=== PATIENT | male | born 1940 | race Caucasian/White ===

== ENCOUNTER → 2016-06-21 | Outpatient (CLI) | payer MEDICARE, OTHER ==
[~2016-06-21] MED LIST: AC500T PO; ALBU8.5H2 IH; APIX2.5T PO; APIX5TAB2 PO; ASP325T PO; CALC-80 PO; CALC500T55 PO; CHOL2000 PO; CLIN-62 PO; DOCU100T7 PO; FURO20TA4 PO; HYDR-3454 PO; HYDR12.56 PO; LEVO750T6 PO; LISI10TA2 PO; LORA10TA7 PO; MAGN100T3 PO; METO-272 PO; METR500T PO; MTF500T PO; MULT-974 PO; OMEP20TA2 PO; PROP15DR OP; ROSU5TAB PO; UBID200C PO; VERA120T6 PO; VITA1CAP59 PO; ZINC50TA49 PO; ZOLP10TA5 PO; calcium PO
--- NOTE | 2016-06-21 12:33 | Diagnostic Imaging Report ---
PROCEDURE: CT lumbar spine without contrast. TECHNIQUE: Multiple contiguous axial images were obtained through the lumbar spine without the use of intravenous contrast. Sagittal and coronal reformations were then performed. INDICATION: Back pain with radiculopathy. FINDINGS: The alignment of the posterior spinal line is satisfactory. The vertebral body heights are preserved. There is suggestion of vertebral body hemangioma occupying most of L4 vertebral body without aggressive features. There is no compression fracture. There is moderate disc height loss and vacuum phenomenon at L5/S1 level. The other disc levels demonstrate no significant height loss. There is no pars defect seen at any level. The alignment at the facet joints is satisfactory. Multilevel anterior osteophyte formation is seen. There is lower lumbar spine facet arthropathy, most prominent at the lower three lumbar spine levels. This results in bilateral neural foraminal narrowing of uvxussgi-gv-bpqfgw degree on the left at L5/S1 and moderate stenosis on the right at this level. There is bilateral vupc-tq-hqvmtvzh stenosis at L4/5. There is no obvious large disc herniation or spinal canal stenosis of high grade seen at any level. This, however, is better assessed with MRI or CT myelogram. IMPRESSION: There is biuoelik-kk-xykpvs foraminal stenosis on the left side at L5/S1 level. Other findings as above. Dictated by: Dictated on workstation # [id number]
== END ==
LOC: RAD 09:28
PROVIDERS: ATTEND Nurse Practitioner Family
DX: M48.06 Spinal stenosis, lumbar region (principal)
CPT/HCPCS: 72131

== ENCOUNTER 2016-08-04 09:41 | Outpatient (CLI) | payer MEDICARE, OTHER ==
[~2016-08-04] VITALS: Ht 170.8 cm; Wt 122.9 kg
[2016-08-04 09:50] VITALS: BP 148/83
[2016-08-04] MEDS ORDERED: APIX5TAB PO (10:00)
[2016-08-04] MEDS ORDERED: LOVA10TA PO (10:00)
[2016-08-04] MEDS ORDERED: OMEP20TA7 PO (10:00)
[2016-08-04 10:44] LABS: BASOPHILS # (AUTO) 0.1 10^3/uL (0.0-0.1); BASOPHILS % (AUTO) 1 % (0-10); EOSINOPHILS # (AUTO) 0.2 10^3/uL (0.0-0.3); EOSINOPHILS % (AUTO) 3 % (0-10); LYMPHOCYTES # (AUTO) 1.9 X 10^3 (1.0-4.0); LYMPHOCYTES % (AUTO) 24 % (12-44); MEAN CORPUSCULAR HEMOGLOBIN 31 PG (25-34); MEAN CORPUSCULAR HGB CONC 33 G/DL (32-36); MEAN CORPUSCULAR VOLUME 92 FL (80-99); MONOCYTES # (AUTO) 0.9 X 10^3 (0.0-1.0); MONOCYTES % (AUTO) 11 % (0-12); NEUTROPHILS # (AUTO) 5.1 X 10^3 (1.8-7.8); NEUTROPHILS % (AUTO) 62 % (42-75); PLATELET COUNT 222 10^3/uL (130-400); RED BLOOD COUNT 5.25 10^6/uL (4.35-5.85); RED CELL DISTRIBUTION WIDTH 14.1 % (10.0-14.5); WHITE BLOOD COUNT 8.2 10^3/uL (4.3-11.0)
[2016-08-04 10:56] LABS: CREATININE SERUM 1.27 MG/DL (0.60-1.30); POTASSIUM 3.9 MMOL/L (3.6-5.0)
== END 2016-08-04 10:20 | disposition home or self-care (01) ==
LOC: PREOP 09:41
PROVIDERS: ATTEND Orthopaedic Surgery
DX: Z01.812 Encounter for preprocedural laboratory examination (principal); Z11.2 Encounter for screening for other bacterial diseases; M23.8X2 Other internal derangements of left knee
CPT/HCPCS: 36415; 80048; 85025; 87081

== ENCOUNTER 2016-08-10 08:21 | Day surgery (SDC) | payer MEDICARE, OTHER ==
--- NOTE | 2016-08-02 14:47 | HISTORY AND PHYSICAL ---
DATE OF SERVICE: Outpatient surgery on 08/10/16 for left knee arthroscopy. HISTORY OF PRESENT ILLNESS: The patient is a 75-year-old gentleman with complaints of left knee pain, catching, locking and swelling as well as tenderness along the lateral aspect of his knee. He reports swelling in this area. He underwent injection which provided temporary relief of his symptoms, but reports the pain has been progressive and is leading to functional impairment and due to failure to improve with conservative measures, the patient has elected to proceed with surgical intervention. REVIEW OF SYSTEMS: CONSTITUTIONAL: No chest pain, no shortness of breath, no dysuria. PAST MEDICAL HISTORY: Hypertension, heart disease. PAST SURGICAL HISTORY: Appendectomy, cholecystectomy, pacemaker placement, hand and foot surgery. SOCIAL HISTORY: The patient denies alcohol and tobacco use. FAMILY HISTORY: Significant for bladder cancer. MEDICATIONS: Omeprazole, lisinopril, furosemide, lovastatin, verapamil, Eliquis. ALLERGIES: PERSANTINE PHYSICAL EXAMINATION: GENERAL: The patient is well developed, well nourished no acute distress. HEENT: Normocephalic, atraumatic. Pupils were equal, round, reactive to light. Oropharynx is clear. NECK: Supple. No lymphadenopathy. LUNGS: Clear to auscultation bilaterally. HEART: Regular rate and rhythm. ABDOMEN: Soft, nontender, nondistended. EXTREMITIES: Gait: Patient ambulates with an antalgic gait on the left, 2 cm cystic mass on lateral joint line which is tender to palpation. Active range of motion: 0/3/130. No varus valgus laxity, negative for anterior and posterior drawer. He has pain laterally with Jet and he is tender along his lateral joint line. 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 PLAN: Left knee arthroscopy, chondroplasty, partial meniscectomy and cyst excision. The risks, benefits, options, ramifications and recovery were discussed at length with the patient. He understands and wishes to proceed. 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
[~2016-08-10] VITALS: Ht 170.8 cm; Wt 122.9 kg
[2016-08-10 08:16] VITALS: BP 135/92
[~2016-08-10 08:21] MED LIST changes: +APIX5TAB PO; +LOVA10TA PO; +OMEP20TA7 PO
[2016-08-10] MEDS ORDERED: ceFAZolin 1 GM/NS 50 ML IVPB IV ONE ×2 (08:30)
[2016-08-10] MEDS ORDERED: FAMOTIDINE 20MG/2ML IV (PEPCID) IV ONE (09:00)
[2016-08-10] MEDS: LACTATED RINGERS 1,000 ML IV PRN ×2 (09:09→10:51)
--- NOTE | 2016-08-10 09:21 | Progress Note-Pre Operative ---
Pre-Operative Progress Note H&P Reviewed The H&P was reviewed, patient examined and no changes noted. Date Seen by Provider: Aug 10, 2016 Time Seen by Provider: :20 Date H&P Reviewed: Aug 10, 2016 Time H&P Reviewed: 09:20 Pre-Operative Diagnosis: left knee lateral meniscus tear, chondromalacia and perimeniscal cyst CLAUDIA ANSARI MD Aug 10, 2016 09:21
--- NOTE | 2016-08-10 09:22 | Progress Note-Post Operative ---
Post-Operative Progess Note Surgeon (s)/Application Support Technician (s) Surgeon CLAUDIA ANSARI MD Application Support Technician: Bryson Brnadt Pre-Operative Diagnosis left knee lateral meniscus tear, chondromalacia and perimeniscal cyst Post-Operative Diagnosis left knee lateral and medial meniscus tear, chondromalacia of the lateral femoral condyle, medial femoral condyle, medial tibial plateau and perimeniscal cyst Procedure & Operative Findings Date of Procedure 08/10/16 Procedure Performed/Findings left knee arthroscopic partial lateral and medial meniscectomy, chondroplasty of the medial femoral condyle, lateral femoral condyle and medial tibial plateau and open cyst excision Anesthesia Type GETA Estimated Blood Loss Estimated blood loss (mL): minimal Specimens/Packing Specimens Removed none Packing: none CLAUDIA ANSARI MD Aug 10, 2016 09:22
[2016-08-10] MEDS ORDERED: BUPIVACAINE 0.25% 30 ML (SENSORCAINE) VIAL ONE (09:59)
[2016-08-10] MEDS ORDERED: morphine PF (DURAMORPH) 10 MG/10 ML AMP ONE (09:59)
[2016-08-10] MEDS ORDERED: fentaNYL INJECTION 100 MCG/2 ML AMP ONE (10:03)
[2016-08-10] MEDS ORDERED: ONDANSETRON 4 MG/2 ML (SDV) Z0FRAN ONE (10:03)
[2016-08-10] MEDS ORDERED: DEXAMETHASONE PF 10 MG/ML (DECADRON) VIAL ONE (10:03)
[2016-08-10] MEDS ORDERED: proPOfol 200 MG/20 ML (DIPRIVAN) VIAL IV ONE (10:03)
[2016-08-10] MEDS ORDERED: MIDAZOLAM 2 MG/2 ML (VERSED) VIAL ONE (10:03)
[2016-08-10] MEDS ORDERED: HYDROcodone/APAP 7.5 MG/325 MG (LORTAB, LORCET PLUS) TABLET PO PRN (10:15)
[2016-08-10] MEDS ORDERED: LACTATED RINGERS 2,000 ML IV ONE (10:37)
[2016-08-10] MEDS ORDERED: SEVOFLURANE (ULTANE) 15 ML INHAL SOLN ONE (10:37)
[2016-08-10] MEDS ORDERED: ROCURONIUM 50 MG/5 ML (ZEMURON) VIAL IV ONE (10:37)
[2016-08-10] MEDS ORDERED: GLYCOPYRROLATE 0.2 MG/ML (ROBINUL) 2 ML VIAL ONE (10:57)
[2016-08-10] MEDS ORDERED: NEOSTIGMINE (BLOXIVERZ ) 1 MG/1ML 10 ML VIAL ONE (10:57)
--- NOTE | 2016-08-10 11:41 | Anesthesia-General Post-Op ---
General Patient Condition Mental Status/LOC: Same as Preop Cardiovascular: Satisfactory Nausea/Vomiting: Absent Respiratory: Satisfactory Pain: Controlled Complications: Absent Post Op Complications Complications None Follow Up Care/Instructions Patient Instructions None needed. Anesthesia/Patient Condition Patient Condition Patient is doing well, no complaints, stable vital signs, no apparent adverse anesthesia problems. No complications reported per nursing. D/C home per [facility] Criteria: LOLITA Dick DO Aug 10, 2016 11:41
[2016-08-10 12:10] VITALS: BP 145/88
[2016-08-10 12:40] VITALS: BP 136/84
--- NOTE | 2016-08-10 13:05 | OPERATIVE REPORT ---
DATE OF SERVICE: 08/10/2016 PREOPERATIVE DIAGNOSES: 1. Left knee lateral meniscal tear. 2. 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 3. Left knee parameniscal cyst. POSTOPERATIVE DIAGNOSES: 1. Left knee lateral meniscal tear. 2. 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 3. Left knee chondromalacia of the medial tibial plateau. PROCEDURES: 1. Left knee arthroscopic partial lateral meniscectomy. 2. Left knee arthroscopic partial medial meniscectomy. 3. Left knee arthroscopic chondroplasty of the lateral femoral condyle. 4. Left knee arthroscopic chondroplasty of the medial femoral condyle. 5. Left knee arthroscopic chondroplasty of the medial tibial plateau. 6. Left knee open parameniscal cyst excision. SURGEON: Luc DOMESTIC HELPER: Bryson Brandt, who assisted throughout the procedure and closed the incision. ANESTHESIA: General endotracheal by Ziggy Rhodes CRNA. TOURNIQUET TIME: 7 minutes at 300 mmHg. ESTIMATED BLOOD LOSS: Minimal. DRAINS: None. COMPLICATIONS: None. POSTOPERATIVE PLAN: Routine arthroscopy protocol. Patient was transported to the recovery room awake and in stable condition. STATEMENT OF MEDICAL NECESSITY: The patient is a 75-year-old gentleman with complaints of left lateral knee pain, catching, locking and swelling. He was tender along his lateral joint line. There was a parameniscal cyst noted. He had pain with Jet maneuver. He tried activity modifications, rest and anti-inflammatories without relief and due to persistent symptoms and failure to improve with conservative measures, the patient elected to proceed with surgical intervention. Examination under anesthesia revealed range of motion of 0/2/130. Negative Selene, negative anterior and posterior drawer. No varus or valgus laxity and negative pivot shift. ARTHROSCOPIC FINDINGS: The patella and trochlea demonstrated no gross chondral abnormalities. Medial and lateral gutter were clear. The medial compartment demonstrated a posterior horn medial meniscal tear involving the approximately one third of the posterior horn. In addition, there were grade 2 chondral flaps over the mediofemoral condyle and medial tibial plateau in adjacent 15 x 15 areas. The ACL and PCL were intact. The lateral compartment demonstrated grade 3 chondral flaps of the central portion of the femoral condyle in a 15 x 20 area. The lateral meniscus demonstrated a horizontal cleavage tear of the posterior horn and body involving approximately one half of the posterior horn and body. PROCEDURE: After risks and benefits of procedure were discussed and questions were answered and informed consent was signed and placed on the chart, the operative site was confirmed in the preoperative holding area and initialed by the surgeon. The patient was then transferred to the operating room and after adequate levels of general endotracheal anesthetic were obtained, a timeout was called, confirming the operative site. Examination under anesthesia was performed with the above findings noted. Left lower extremity was prepped and draped in the usual sterile fashion. The knee joint was injected with 60 mL of fluid and a standard infralateral port was placed under direct visualization. An inferomedial port was created. The menisci and cruciates were carefully probed with the above findings noted. The unstable chondral flaps on the medial femoral condyle and the medial tibial plateau were debrided with a shaver back to a stable edge. The posterior horn of the medial meniscus was debrided with a biter and shaver, removing approximately one third of the posterior horn. The scope was then redirected into the lateral compartment where the unstable chondral flaps within the lateral femoral condyle were debrided with a shaver back to a stable edge and lateral meniscus tear was debrided with a biter and shaver, removing approximately one half of the posterior horn and body. This was carefully probed and no further tear or instability noted. The knee was copiously irrigated. Port sites were closed with 3-0 nylon in simple interrupted fashion. The tourniquet was then inflated and a longitudinal incision was made over the parameniscal cyst. The underlying soft tissues were carefully dissected. The deep layer was exposed and the cyst was exposed and excised in its entirety. The capsule was then closed with 3-0 Vicryl in kzzexn-nm-qgmnp interrupted fashion. The tourniquet was deflated. Pressure was used for hemostasis. The wound was copiously irrigated and closed with 4-0 nylon in vertical mattress interrupted fashion. A soft dressing was applied after injecting the knee with Duramorph and the incisions with plain Marcaine. The patient was transported to the recovery room awake and in stable condition. Job ID: [id number] DocumentID: [id number] Dictated Date: 08/10/2016 11:11:39 Manager E Learning Date: 08/10/2016 13:04:50 Dictated By: CLAUDIA ANSARI MD
[2016-08-10] MEDS ORDERED: HYDR-3816 PO (13:09)
[2016-08-10 13:10] VITALS: BP 138/86
[2016-08-10 13:35] VITALS: BP 138/86
--- NOTE | 2016-08-10 13:51 | Physical Therapy Ortho Eval ---
PT Orthopedic Evaluation Type of Surgery Knee Scope left side Prior Level of Function Current Living Status: Spouse Locomotion (Upon Admit): Independent Established Durable Medical Eq: Straight Cane, Crutches Subjective Subjective Patient in bed pre tx, agrees to PT, has pain of 5/10 in left knee. Entry Into Home: Stairs Without Railing Steps Into Home: 2 Objective Objective left knee flexion 90 degrees, extension 0 degrees Motor Control Motor Control: Motor Control WNL ROM ROM: WFL, except focal deficit Strength NT Transfer Transfers (B, C, W/C) (FIM): 5 Gait Gait Assistive Device: Crutches Weight Bearing Restriction: Weight Bearing/Tolerated Location Restriction: L LE Gait (FIM): 2 Distance: 100' Gait Level of Assist: 5 Summary/Comments Patient ambulated 100' with crutches with SBA, he went up and down 1 step using crutches with CGA Treatment Rendered Treatment: Therapeutic Exercises, Gait Train, Step Train Exercise Instruction: Quad Sets, Heel Slides, Ankle Pumps Assessment/Goals Goal Time Frame: 1 Visit Plan Treatment Plan: Discharge PT/Family Agrees to Plan: Yes Time Time In: 1300 Time Out: 1320 Total Billed Treatment Time: 20 Billed Treatment Time 1 visit EVL 20' Yes PT/OT Therapy GCodes Therapy Functional Limitation: Physical Therapy Test(s)/Tool used to determine: Level of Assistance Scale Functional Limitation-Current Charge Code: MOBCUR Modifier: CI Functional Limitation-Goal Charge Code: MOBGOAL Modifier: CI Functional Limitation-D/C Charge Codes: MOBDC Modifier: CI ENRIKE CARRERO PT Aug 10, 2016 13:51
== END 2016-08-10 13:35 | disposition home or self-care (01) ==
LOC: SDC 08:21
PROVIDERS: ATTEND Orthopaedic Surgery
DX: M23.8X2 Other internal derangements of left knee (principal); M23.001 Cystic meniscus, unspecified lateral meniscus, left knee; I10 Essential (primary) hypertension; Z79.899 Other long term (current) drug therapy; E78.5 Hyperlipidemia, unspecified; Z95.0 Presence of cardiac pacemaker; G47.33 Obstructive sleep apnea (adult) (pediatric); K21.9 Gastro-esophageal reflux disease without esophagitis; E66.01 Morbid (severe) obesity due to excess calories; Z68.41 Body mass index [BMI] 40.0-44.9, adult

== ENCOUNTER → 2017-04-10 | Outpatient (CLI) | payer MEDICARE, OTHER ==
[~2017-04-10] VITALS: Ht 170.2 cm; Wt 120.2 kg
[~2017-04-10] MED LIST changes: +CATHETER FLUSH 10 ML SYR IV PRN; +HYDR-34 PO; +REGADENOSON 0.4 MG/5 ML SYR (LEXISCAN) IV ONE
[2017-04-10 07:56] VITALS: BP 148/87
--- NOTE | 2017-04-11 00:16 | STRESS TEST ---
DATE OF SERVICE: 04/10/2017 NUCLEAR MYOVIEW REPORT REFERRING PHYSICIAN: Dr. Pate. In summary, the patient was injected with 10.15 mCi of technetium-99 Myoview and the resting images were obtained. Then, the patient received with peak stress level at 31.0 mCi of technetium-99 Myoview and the stress images were acquired. The resting and stress images were reviewed and compared in the short axis, horizontal long axis, and vertical long axis views, the test was supervised by Dr. Pate. Review of the images showed diaphragmatic attenuation with typical male pattern. Mild decreased uptake at the inferior wall. No significant ischemia was noted. SSS is 1, SDS 1, TID value 0.97. On the gated images, the left ventricle appeared to be normal size with normal contractility. Calculated ejection fraction 60%. CONCLUSION: 1. Diaphragmatic attenuation with typical male pattern with no significant ischemia or infarction on SPECT images. 2. Normal left ventricular size with normal contractility. Calculated ejection fraction 60%. Job ID: [id number] DocumentID: [id number] Dictated Date: 04/10/2017 18:25:45 Check Clerk Date: 04/11/2017 00:15:55 Dictated By: TRES ROCK MD
== END ==
LOC: CARD 06:38
PROVIDERS: ATTEND Internal Medicine
DX: I48.91 Unspecified atrial fibrillation (principal); I49.5 Sick sinus syndrome
CPT/HCPCS: 78452; 93017

== ENCOUNTER 2017-04-26 12:03 | Outpatient (CLI) | payer MEDICARE, OTHER ==
[~2017-04-26] VITALS: Ht 170.2 cm; Wt 122.9 kg
[~2017-04-26 12:03] MED LIST changes: -CATHETER FLUSH 10 ML SYR IV PRN; -REGADENOSON 0.4 MG/5 ML SYR (LEXISCAN) IV ONE
[2017-04-26 12:14] VITALS: BP 119/88
[2017-04-26] MEDS ORDERED: VERA120T6 PO (12:22)
[2017-04-26] MEDS ORDERED: ZINC50TA61 PO (12:22)
[2017-04-26] MEDS ORDERED: DOCU100T2 PO (12:22)
[2017-04-26] MEDS ORDERED: LORA10TA7 PO (12:22)
[2017-04-26] MEDS ORDERED: FURO20TA4 PO (12:22)
[2017-04-26] MEDS ORDERED: LISI10TA2 PO (12:22)
[2017-04-26] MEDS ORDERED: UBID200C36 PO (12:22)
[2017-04-26 13:06] LABS: BASOPHILS % (AUTO) 0 % (0-10); EOSINOPHILS # (AUTO) 0.4 10^3/uL (0.0-0.3); EOSINOPHILS % (AUTO) 4 % (0-10); HEMATOCRIT 41 % (40-54); HEMOGLOBIN 14.5 G/DL (13.3-17.7); LYMPHOCYTES # (AUTO) 2.6 X 10^3 (1.0-4.0); LYMPHOCYTES % (AUTO) 28 % (12-44); MEAN CORPUSCULAR HEMOGLOBIN 32 PG (25-34); MEAN CORPUSCULAR HGB CONC 35 G/DL (32-36); MEAN CORPUSCULAR VOLUME 91 FL (80-99); MEAN PLATELET VOLUME 9.5 FL (7.4-10.4); MONOCYTES % (AUTO) 10 % (0-12); NEUTROPHILS # (AUTO) 5.2 X 10^3 (1.8-7.8); NEUTROPHILS % (AUTO) 57 % (42-75); PLATELET COUNT 232 10^3/uL (130-400); RED BLOOD COUNT 4.53 10^6/uL (4.35-5.85); RED CELL DISTRIBUTION WIDTH 12.4 % (10.0-14.5); WHITE BLOOD COUNT 9.1 10^3/uL (4.3-11.0)
[2017-04-26 13:20] LABS: INR 1.1 (0.8-1.4); PROTHROMBIN TIME PATIENT 13.9 SEC (12.2-14.7)
[2017-04-26 13:23] LABS: BILIRUBIN,URINE NEGATIVE (NEGATIVE); CLARITY,URINE CLEAR; COLOR,URINE YELLOW; GLUCOSE, URINE (UA) NEGATIVE (NEGATIVE); KETONES,URINE NEGATIVE (NEGATIVE); LEUKOCYTE ESTERASE ,URINE NEGATIVE (NEGATIVE); NITRITE,URINE NEGATIVE (NEGATIVE); PH,URINE 6 (5-9); PROTEIN,URINE NEGATIVE (NEGATIVE); UROBILINOGEN,URINE NORMAL (NORMAL)
[2017-04-26 13:24] LABS: ERYTHROCYTE SEDIMENTATION RATE 12 MM/HR (0-30)
--- NOTE | 2017-04-26 13:24 | Diagnostic Imaging Report ---
INDICATION: Preoperative evaluation. COMPARISON: 09/17/2014 FINDINGS: Two views of the chest are obtained. Heart size is normal. The pulmonary vessels appear unremarkable. Pacer device in the right chest is stable. There is no pneumothorax, mediastinal widening or pleural fluid. Chronic findings of COPD with flattening of the diaphragms is unchanged. There is some scarring at the lung bases bilaterally. The lungs are otherwise clear. The osseous structures appear unremarkable. IMPRESSION: Chronic findings of COPD and scarring appears similar to the prior study. No new or acute cardiopulmonary abnormality is demonstrated. Dictated by: Dictated on workstation # [id number]
[2017-04-26 13:28] LABS: ALANINE AMINOTRANSFERASE 26 U/L (0-55); ALKALINE PHOSPHATASE 62 U/L (40-136); BILIRUBIN,TOTAL 0.4 MG/DL (0.1-1.0); BUN/CREATININE RATIO 19; CARBON DIOXIDE 20 MMOL/L (21-32); CHLORIDE 107 MMOL/L (98-107); CREATININE SERUM 0.96 MG/DL (0.60-1.30); GFR ESTIMATED > 60; GLUCOSE 85 MG/DL (70-105); SODIUM 139 MMOL/L (135-145); TOTAL PROTEIN 7.4 GM/DL (6.4-8.2)
[2017-04-26 13:31] LABS: BACTERIA,URINE NEGATIVE /HPF; SQUAMOUS EPITHELIAL CELL,UR 0-2 /HPF
== END 2017-04-26 13:15 | disposition home or self-care (01) ==
LOC: PREOP 12:03
PROVIDERS: ATTEND Orthopaedic Surgery
DX: Z01.811 Encounter for preprocedural respiratory examination (principal); Z01.812 Encounter for preprocedural laboratory examination; Z11.2 Encounter for screening for other bacterial diseases; M17.11 Unilateral primary osteoarthritis, right knee; R53.83 Other fatigue
CPT/HCPCS: 36415; 71046; 80053; 81000; 85025; 85610; 85652; 86850; 86900; 86901; 87081

== ENCOUNTER 2017-05-03 06:00 | Inpatient (IN) | payer MEDICARE, OTHER ==
--- NOTE | 2017-04-24 11:00 | HISTORY AND PHYSICAL ---
DATE OF SERVICE: DATE OF ADMISSION: 05/03/2017. HISTORY OF PRESENT ILLNESS: The patient is a 76-year-old gentleman with complaints of progressive worsening right knee pain. He has undergone treatment with injections, arthroscopies and anti-inflammatories without relief. He reports pain on the medial aspect of the knee. He reports severe activity limitations because of the knee. He reports functional impairment. He has failed to respond to conservative measures and because of this has elected to proceed with surgical intervention. Radiographs revealed a complete loss of medial joint space with moderate patellofemoral joint space narrowing. REVIEW OF SYSTEMS: No chest pain, no shortness of breath. No dysuria. PAST MEDICAL HISTORY: Hypertension and heart disease. PAST SURGICAL HISTORY: Appendectomy, cholecystectomy, pacemaker and foot. FAMILY HISTORY: Significant for bladder cancer. PRIMARY CARE PROVIDER: Dr. Pate. MEDICATIONS: Omeprazole, lisinopril, furosemide, lovastatin, verapamil, Eliquis, hydrocodone. ALLERGIES: To PERSANTINE. SOCIAL HISTORY: The patient denies alcohol use. He is a previous smoker, he quit in 1994. PHYSICAL EXAMINATION: GENERAL: Well-developed, well-nourished, no acute distress. HEENT: Normocephalic, atraumatic. Pupils are equal and reactive. Oropharynx is clear. NECK: Supple, no lymphadenopathy. LUNGS: Clear to auscultation bilaterally. HEART: Regular rate and rhythm. ABDOMEN: Soft, nontender, nondistended. EXTREMITIES: The right knee demonstrates moderate effusion. There is no erythema or warmth. He is tender along his medial joint line. He has pain with Jet's range of motion. It is 0/2/125, he is 1+ anterior drawer and posterior drawer. No varus valgus laxity. IMPRESSION: Severe right knee primary osteoarthritis. PLAN: Right total knee arthroplasty. The risks, benefits, options, complications and recovery have been discussed at length with the patient. He understands and wished to proceed. This will be an inpatient regular admission due to pain management issues, gait issues and comorbidities. Job ID: [id number] DocumentID: [id number] Dictated Date: 04/24/2017 09:46:39 Postal Clerk Date: 04/24/2017 10:59:18 Dictated By: CLAUDIA ANSARI MD
[~2017-05-03] VITALS: Ht 170.2 cm; Wt 122.9 kg
[~2017-05-03 06:00] MED LIST changes: +DOCU100T2 PO; +UBID200C36 PO; +ZINC50TA61 PO
--- OUTSIDE RECORDS SUMMARY | 2017-05-03 06:10 | XMS REPORT | Continuity of Care Document ---
Author Author [facility] Organization [facility] Address Unknown Phone Unavailable Allergies Active Description Code Type Severity Reaction Onset Reported/Identified Relationship to Patient Clinical Status Yes dipyridamole [id number] Drug Allergy Unknown PT HAD REACTION 08/15/2006 Medications There is no data. Problems Date Dx Coded Attending Type Code Diagnosis Diagnosed By 07/01/2009 Ot 211.3 BENIGN NEOPLASM LG BOWEL 07/01/2009 Ot 455.0 INT HEMORRHOID W/O COMPL 07/01/2009 Ot 455.3 EXT HEMORRHOID W/O COMPL 07/01/2009 Ot 562.10 DIVERTICULOSIS COLON (W/O MENT OF HEMORR 07/01/2009 Ot V12.72 PERSONAL HISTORY OF COLONIC POLYPS 11/20/2013 SHAYY NICE, RICK López Ot 455.5 EXT HEMRRHOID W COMP NEC 11/20/2013 RICK LUCAS MD Ot 562.10 DIVERTICULOSIS COLON (W/O MENT OF HEMORR 12/27/2013 RICK LUCAS MD Ot 401.9 HYPERTENSION NOS 12/27/2013 RICK LUCAS MD Ot 427.31 ATRIAL FIBRILLATION 12/27/2013 RICK LUCAS MD Ot 455.2 INT HEMRRHOID W COMP NEC 01/22/2014 RICK LUCAS MD Ot 455.6 01/22/2014 RICK LUCAS MD Ot V72.63 01/22/2014 RICK LUCAS MD Ot V74.8 09/22/2014 SAROJ LYONS DO Ot 038.9 SEPTICEMIA NOS 09/22/2014 SAROJ LYONS DO Ot 266.2 B-COMPLEX DEFIC NEC 09/22/2014 SAROJ LYONS DO Ot 268.9 VITAMIN D DEFICIENCY NOS 09/22/2014 SAROJ LYONS DO Ot 271.3 DISACCHARIDASE DEF/MALAB 09/22/2014 SAROJ LYONS DO Ot 272.4 HYPERLIPIDEMIA NEC/NOS 09/22/2014 SAROJ LYONS DO, Ot 276.1 HYPOSMOLALITY 09/22/2014 SAROJ LYONS DO, Ot 276.52 HYPOVOLEMIA 09/22/2014 SAROJ LYONS DO, Ot 278.00 OBESITY, NOS 09/22/2014 SAROJ LYONS DO Ot 327.23 OBSTRUCTIVE SLEEP APNEA (ADULT) (PEDIATR 09/22/2014 SAROJ LYONS DO, Ot 327.51 PERIODIC LIMB MOVEMENT DISORDER 09/22/2014 SAROJ LYONS DO, Ot 433.10 CAROTID ARTERY OCCLUSION W O CEREBRAL IN 09/22/2014 SAROJ LYONS DO, Ot 477.9 ALLERGIC RHINITIS NOS 09/22/2014 SAROJ LYONS DO Ot 486 PNEUMONIA, ORGANISM NOS 09/22/2014 SAROJ LYONS DO, Ot 496 CHR AIRWAY OBSTRUCT NEC 09/22/2014 SAROJ LYONS DO, Ot 523.01 ACUTE GINGIVITIS, NON-PLAQUE INDUCED 09/22/2014 SAROJ LYONS DO, Ot 525.10 UNSPEC ACQUIRED ABSENCE OF TEETH 09/22/2014 SAROJ LYONS DO, Ot 525.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, UNSPECIFIED 09/22/2014 SAROJ LYONS DO Ot 530.81 ESOPHAGEAL REFLUX 09/22/2014 SAROJ LYONS DO Ot 600.90 HYPERPLASIA OF PROSTATE, UNSPEC, W/O URI 09/22/2014 SAROJ LYONS DO, Ot 715.89 OSTEOARTHROSIS-MULT SITE 09/22/2014 SAROJ LYONS DO Ot 722.52 LUMB/LUMBOSAC DISC DEGEN 09/22/2014 SAROJ LYONS DO Ot 995.91 SEPSIS 09/22/2014 SAROJ LYONS DO, Ot V15.82 HISTORY OF TOBACCO USE 09/22/2014 SAROJ LYONS DO, Ot V45.01 CARDIAC PACEMAKER IN SITU 09/22/2014 SAROJ LYONS DO, Ot V45.89 POSTSURGICAL STATES NEC 09/22/2014 SAROJ LYONS DO, Ot V85.37 BODY MASS INDEX 37.0-37.9, ADULT 07/13/2016 YOSHI LYONS Ot M48.06 SPINAL STENOSIS, LUMBAR REGION 08/01/2016 YOSHI LYONS Ot M48.06 SPINAL STENOSIS, LUMBAR REGION 08/04/2016 CLAUDIA ANSARI MD Ot M23.8X2 OTHER INTERNAL DERANGEMENTS OF LEFT KNEE 08/04/2016 CLAUDIA ANSARI MD, Ot Z01.812 ENCOUNTER FOR PREPROCEDURAL LABORATORY E 08/04/2016 CLAUDIA ANSARI MD, Ot Z11.2 ENCOUNTER FOR SCREENING FOR OTHER BACTER 08/10/2016 CLAUDIA ANSARI MD Ot E66.01 MORBID (SEVERE) OBESITY DUE TO EXCESS CA 08/10/2016 CLAUDIA ANSARI MD Ot E78.5 HYPERLIPIDEMIA, UNSPECIFIED 08/10/2016 CLAUDIA ANSARI MD, Ot G47.33 OBSTRUCTIVE SLEEP APNEA (ADULT) (PEDIATR 08/10/2016 CLAUDIA ANSARI MD Ot I10 ESSENTIAL (PRIMARY) HYPERTENSION 08/10/2016 CLAUDIA ANSARI MD, Ot K21.9 GASTRO-ESOPHAGEAL REFLUX DISEASE WITHOUT 08/10/2016 CLAUDIA ANSARI MD Ot M23.001 CYSTIC MENISCUS, UNSPECIFIED LATERAL MEN 08/10/2016 CLAUDIA ANSARI MD Ot M23.8X2 OTHER INTERNAL DERANGEMENTS OF LEFT KNEE 08/10/2016 CLAUDIA ANSARI MD Ot Z68.41 BODY MASS INDEX (BMI) 40.0-44.9, ADULT 08/10/2016 CLAUDIA ANSARI MD Ot Z79.899 OTHER MOLECULAR SPECTROSCOPIST (CURRENT) DRUG THERAPY 08/10/2016 CLAUDIA ANSARI MD Ot Z87.891 PERSONAL HISTORY OF NICOTINE DEPENDENCE 08/10/2016 CLAUDIA ANSARI MD Ot Z95.0 PRESENCE OF CARDIAC PACEMAKER 08/11/2016 CLAUDIA ANSARI MD Ot E66.01 MORBID (SEVERE) OBESITY DUE TO EXCESS CA 08/11/2016 CLAUDIA ANSARI MD Ot E78.5 HYPERLIPIDEMIA, UNSPECIFIED 08/11/2016 CLAUDIA ANSARI MD Ot G47.33 OBSTRUCTIVE SLEEP APNEA (ADULT) (PEDIATR 08/11/2016 CLAUDIA ANSARI MD Ot I10 ESSENTIAL (PRIMARY) HYPERTENSION 08/11/2016 CLAUDIA ANSARI MD Ot K21.9 GASTRO-ESOPHAGEAL REFLUX DISEASE WITHOUT 08/11/2016 CLAUDIA ANSARI MD Ot M23.001 CYSTIC MENISCUS, UNSPECIFIED LATERAL MEN 08/11/2016 CLAUDIA ANSARI MD Ot M23.8X2 OTHER INTERNAL DERANGEMENTS OF LEFT KNEE 08/11/2016 CLAUDIA ANSARI MD Ot Z68.41 BODY MASS INDEX (BMI) 40.0-44.9, ADULT 08/11/2016 CLAUDIA ANSARI MD, Ot Z79.899 OTHER ALF (CURRENT) DRUG THERAPY 08/11/2016 CLAUDIA ANSARI MD Ot Z95.0 PRESENCE OF CARDIAC PACEMAKER 09/27/2016 CLAUDIA ANSARI MD Ot E66.01 MORBID (SEVERE) OBESITY DUE TO EXCESS CA 09/27/2016 CLAUDIA ANSARI MD, Ot E78.5 HYPERLIPIDEMIA, UNSPECIFIED 09/27/2016 CLAUDIA ANSARI MD, Ot G47.33 OBSTRUCTIVE SLEEP APNEA (ADULT) (PEDIATR 09/27/2016 CLAUDIA ANSARI MD, Ot I10 ESSENTIAL (PRIMARY) HYPERTENSION 09/27/2016 CLAUDIA ANSARI MD, Ot K21.9 GASTRO-ESOPHAGEAL REFLUX DISEASE WITHOUT 09/27/2016 CLAUDIA ANSARI MD, Ot M23.001 CYSTIC MENISCUS, UNSPECIFIED LATERAL MEN 09/27/2016 CLAUDIA ANSARI MD Ot M23.8X2 OTHER INTERNAL DERANGEMENTS OF LEFT KNEE 09/27/2016 CLAUDIA ANSARI MD, Ot Z68.41 BODY MASS INDEX (BMI) 40.0-44.9, ADULT 09/27/2016 CLAUDIA ANSARI MD, Ot Z79.899 OTHER MOLECULAR SPECTROSCOPIST (CURRENT) DRUG THERAPY 09/27/2016 CLAUDIA ANSARI MD, Ot Z87.891 PERSONAL HISTORY OF NICOTINE DEPENDENCE 09/27/2016 CLAUDIA ANSARI MD Ot Z95.0 PRESENCE OF CARDIAC PACEMAKER 04/04/2017 SHAYY NICE, RICK López Ot V72.84 EXAM PRE-OPERATIVE NOS 04/04/2017 RICK LUCAS MD Ot 455.6 HEMORRHOIDS NOS 04/04/2017 RICK LUCAS MD Ot V72.63 PRE-PROCEDURAL LABORATORY EXAMINATION 04/04/2017 RICK LUCAS MD Ot V74.8 SCREEN-BACTERIAL DIS NEC 04/04/2017 YOSHI LYONS Ot M48.06 SPINAL STENOSIS, LUMBAR REGION 04/13/2017 SAROJ LYONS DO Ot I48.91 UNSPECIFIED ATRIAL FIBRILLATION 04/13/2017 SAROJ LYONS DO Ot I49.5 SICK SINUS SYNDROME 04/27/2017 CLAUDIA ANSARI MD, Ot M17.11 UNILATERAL PRIMARY OSTEOARTHRITIS, RIGHT 04/27/2017 CLAUDIA ANSARI MD, Ot R53.83 OTHER FATIGUE 04/27/2017 CLAUDIA ANSARI MD, Ot Z01.811 ENCOUNTER FOR PREPROCEDURAL RESPIRATORY 04/27/2017 CLAUDIA ANSARI MD, Ot Z01.812 ENCOUNTER FOR PREPROCEDURAL LABORATORY E 04/27/2017 CLAUDIA ANSARI MD, Ot Z11.2 ENCOUNTER FOR SCREENING FOR OTHER BACTER 05/02/2017 SAROJ LYONS DO, Ot I48.91 UNSPECIFIED ATRIAL FIBRILLATION 05/02/2017 SAROJ LYONS DO, Ot I49.5 SICK SINUS SYNDROME Procedures There is no data. Results Test Result Range Complete blood count (CBC) with automated white blood cell (WBC) differential - 08/04/16 10:10 Blood leukocytes automated count (number/volume) 8.2 10*3/uL 4.3-11.0 Blood erythrocytes automated count (number/volume) 5.25 10*6/uL 4.35-5.85 Venous blood hemoglobin measurement (mass/volume) 16.0 g/dL 13.3-17.7 Blood hematocrit (volume fraction) 48 % 40-54 Automated erythrocyte mean corpuscular volume 92 [foz_us] 80-99 Automated erythrocyte mean corpuscular hemoglobin (mass per erythrocyte) 31 pg 25-34 Automated erythrocyte mean corpuscular hemoglobin concentration measurement ( mass/volume) 33 g/dL 32-36 Automated erythrocyte distribution width ratio 14.1 % 10.0-14.5 Automated blood platelet count (count/volume) 222 10*3/uL 130-400 Automated blood platelet mean volume measurement 10.0 [foz_us] 7.4-10.4 Automated blood neutrophils/100 leukocytes 62 % 42-75 Automated blood lymphocytes/100 leukocytes 24 % 12-44 Blood monocytes/100 leukocytes 11 % 0-12 Automated blood eosinophils/100 leukocytes 3 % 0-10 Automated blood basophils/100 leukocytes 1 % 0-10 Blood neutrophils automated count (number/volume) 5.1 10*3 1.8-7.8 Blood lymphocytes automated count (number/volume) 1.9 10*3 1.0-4.0 Blood monocytes automated count (number/volume) 0.9 10*3 0.0-1.0 Automated eosinophil count 0.2 10*3/uL 0.0-0.3 Automated blood basophil count (count/volume) 0.1 10*3/uL 0.0-0.1 Whole blood basic metabolic panel - 08/04/16 10:10 Serum or plasma sodium measurement (moles/volume) 137 mmol/L 135-145 Serum or plasma potassium measurement (moles/volume) 3.9 mmol/L 3.6-5.0 Serum or plasma chloride measurement (moles/volume) 105 mmol/L 98-107 Carbon dioxide 23 mmol/L 21-32 Serum or plasma anion gap determination (moles/volume) 9 mmol/L 5-14 Serum or plasma urea nitrogen measurement (mass/volume) 17 mg/dL 7-18 Serum or plasma creatinine measurement (mass/volume) 1.27 mg/dL 0.60-1.30 Serum or plasma urea nitrogen/creatinine mass ratio 13 NRG Serum or plasma creatinine measurement with calculation of estimated glomerular filtration rate 55 NRG Serum or plasma glucose measurement (mass/volume) 121 mg/dL 70-105 Serum or plasma calcium measurement (mass/volume) 9.0 mg/dL 8.5-10.1 Methicillin resistant Staphylococcus aureus (MRSA) screening culture - 10:10 Methicillin resistant Staphylococcus aureus (MRSA) screening culture NEG NRG Complete blood count (CBC) with automated white blood cell (WBC) differential - 04/26/17 12:55 Blood leukocytes automated count (number/volume) 9.1 10*3/uL 4.3-11.0 Blood erythrocytes automated count (number/volume) 4.53 10*6/uL 4.35-5.85 Venous blood hemoglobin measurement (mass/volume) 14.5 g/dL 13.3-17.7 Blood hematocrit (volume fraction) 41 % 40-54 Automated erythrocyte mean corpuscular volume 91 [foz_us] 80-99 Automated erythrocyte mean corpuscular hemoglobin (mass per erythrocyte) 32 pg 25-34 Automated erythrocyte mean corpuscular hemoglobin concentration measurement ( mass/volume) 35 g/dL 32-36 Automated erythrocyte distribution width ratio 12.4 % 10.0-14.5 Automated blood platelet count (count/volume) 232 10*3/uL 130-400 Automated blood platelet mean volume measurement 9.5 [foz_us] 7.4-10.4 Automated blood neutrophils/100 leukocytes 57 % 42-75 Automated blood lymphocytes/100 leukocytes 28 % 12-44 Blood monocytes/100 leukocytes 10 % 0-12 Automated blood eosinophils/100 leukocytes 4 % 0-10 Automated blood basophils/100 leukocytes 0 % 0-10 Blood neutrophils automated count (number/volume) 5.2 10*3 1.8-7.8 Blood lymphocytes automated count (number/volume) 2.6 10*3 1.0-4.0 Blood monocytes automated count (number/volume) 1.0 10*3 0.0-1.0 Automated eosinophil count 0.4 10*3/uL 0.0-0.3 Automated blood basophil count (count/volume) 0.0 10*3/uL 0.0-0.1 PT panel in platelet poor plasma by coagulation assay - 04/26/17 12:55 Prothrombin time (PT) in platelet poor plasma by coagulation assay 13.9 s 12.2-14.7 INR in platelet poor plasma or blood by coagulation assay 1.1 0.8-1.4 Erythrocyte sedimentation rate by westergren method - 04/26/17 12:55 Erythrocyte sedimentation rate by westergren method 12 mm 0-30 Comprehensive metabolic panel - 04/26/17 12:55 Serum or plasma sodium measurement (moles/volume) 139 mmol/L 135-145 Serum or plasma potassium measurement (moles/volume) 4.0 mmol/L 3.6-5.0 Serum or plasma chloride measurement (moles/volume) 107 mmol/L 98-107 Carbon dioxide 20 mmol/L 21-32 Serum or plasma anion gap determination (moles/volume) 12 mmol/L 5-14 Serum or plasma urea nitrogen measurement (mass/volume) 18 mg/dL 7-18 Serum or plasma creatinine measurement (mass/volume) 0.96 mg/dL 0.60-1.30 Serum or plasma urea nitrogen/creatinine mass ratio 19 NRG Serum or plasma creatinine measurement with calculation of estimated glomerular filtration rate > NRG Serum or plasma glucose measurement (mass/volume) 85 mg/dL 70-105 Serum or plasma calcium measurement (mass/volume) 9.0 mg/dL 8.5-10.1 Serum or plasma total bilirubin measurement (mass/volume) 0.4 mg/dL 0.1-1.0 Serum or plasma alkaline phosphatase measurement (enzymatic activity/volume) 62 U/L 40-136 Serum or plasma aspartate aminotransferase measurement (enzymatic activity/ volume) 22 U/L 5-34 Serum or plasma alanine aminotransferase measurement (enzymatic activity/volume ) 26 U/L 0-55 Serum or plasma protein measurement (mass/volume) 7.4 g/dL 6.4-8.2 Serum or plasma albumin measurement (mass/volume) 4.0 g/dL 3.2-4.5 Blood type T Indirect antibody screen panel - 04/26/17 12:55 ABO+Rh group ON NRG Blood group antibody screen NEGATIVE NRG Methicillin resistant Staphylococcus aureus (MRSA) screening culture - 12:55 Methicillin resistant Staphylococcus aureus (MRSA) screening culture NEG NRG Complete urinalysis with reflex to culture - 04/26/17 13:13 Urine color determination YELLOW NRG Urine clarity determination CLEAR NRG Urine pH measurement by test strip 6 5-9 Specific gravity of urine by test strip 1.015 1.016- 1.022 Urine protein assay by test strip, semi-quantitative NEGATIVE NEGATIVE Urine glucose detection by automated test strip NEGATIVE NEGATIVE Erythrocytes detection in urine sediment by light microscopy 3+ NEGATIVE Urine ketones detection by automated test strip NEGATIVE NEGATIVE Urine nitrite detection by test strip NEGATIVE NEGATIVE Urine total bilirubin detection by test strip NEGATIVE NEGATIVE Urine urobilinogen measurement by automated test strip (mass/volume) NORMAL NORMAL Urine leukocyte esterase detection by dipstick NEGATIVE NEGATIVE Automated urine sediment erythrocyte count by microscopy (number/high power field) [HPF] NRG Automated urine sediment leukocyte count by microscopy (number/high power field ) NONE NRG Bacteria detection in urine sediment by light microscopy NEGATIVE NRG Squamous epithelial cells detection in urine sediment by light microscopy 0-2 NRG Crystals detection in urine sediment by light microscopy NONE NRG Casts detection in urine sediment by light microscopy NONE NRG Mucus detection in urine sediment by light microscopy NEGATIVE NRG Complete urinalysis with reflex to culture NO NRG Encounters ACCT No. Visit Date/Time Discharge Status Pt. Type Provider Facility Loc./Unit Complaint [id number] 04/26/2017 12:03:00 04/26/2017 13:15:00 DIS Outpatient ELAN NICE, CLAUDIA [facility] PREOP OSTEOARTHRITIS [id number] 04/10/2017 06:38:00 04/10/2017 23:59:59 CLS Outpatient SAROJ LYONS DO [facility] CARD I48.1 [id number] 08/10/2016 08:21:00 08/10/2016 13:35:00 DIS Outpatient CLAUDIA ANSARI MD [facility] LEFT KNEE TORN LATERAL MENISCUS;PARAMENISCAL CYST [id number] 08/04/2016 09:41:00 08/04/2016 10:20:00 DIS Outpatient CLAUDIA ANSARI MD [facility] PREOP LEFT KNEE TORN LATERAL MENISCUS;PARAMENISCAL CYST [id number] 06/21/2016 09:28:00 06/21/2016 23:59:59 CLS Outpatient YOSHI LYONS [facility] RAD LUMBALGIA W/ RADICULOPATHY [id number] 09/17/2014 16:21:00 09/22/2014 16:01:00 DIS Inpatient SAROJ LYONS DO [facility] SURGICAL HIGH FEVER, INTRA ORAL INFECTION [id number] 12/27/2013 08:44:00 12/27/2013 13:45:00 DIS Outpatient RICK LUCAS MD [facility] HEMORRHOIDS [id number] 12/24/2013 11:17:00 12/24/2013 23:59:59 CLS Outpatient RICK LUCAS MD [facility] PREOP HEMORRHOIDS [id number] 11/20/2013 06:22:00 11/20/2013 09:10:00 DIS Outpatient RICK LUCAS MD [facility] RECTAL BLEEDING [id number] 11/13/2013 07:19:00 11/13/2013 23:59:59 CLS Outpatient RICK LUCAS MD [facility] PREOP RECTAL BLEEDING [id number] 05/03/2017 10:15:00 PEN Preadmit ELAN NICE, CLAUDIA [place] OSTEOARTHRITIS [id number] 07/01/2009 08:08:00 Document Registration
[2017-05-03] MEDS ORDERED: proPOfol 200 MG/20 ML (DIPRIVAN) VIAL IV ONE (06:43)
[2017-05-03] MEDS ORDERED: DEXAMETHASONE 10 MG/ML (DECADRON) 1 ML VIAL ONE (06:43)
[2017-05-03] MEDS ORDERED: ONDANSETRON 4 MG/2 ML (SDV) Z0FRAN ONE ×2 (06:43→08:59)
[2017-05-03] MEDS ORDERED: LIDOCAINE PF 2% 5 ML (XYLOCAINE) VIAL ONE (06:43)
[2017-05-03] MEDS ORDERED: MIDAZOLAM 2 MG/2 ML (VERSED) VIAL ONE (06:44)
[2017-05-03] MEDS ORDERED: fentaNYL INJECTION 100 MCG/2 ML AMP ONE ×2 (06:44→08:06)
[2017-05-03] MEDS ORDERED: CEFUROXIME INJECTION 1,500 MG in NS (IVPB) 50 ML IV ONE (07:00)
--- NOTE | 2017-05-03 07:27 | Progress Note-Pre Operative ---
Pre-Operative Progress Note H&P Reviewed The H&P was reviewed, patient examined and no changes noted. Date Seen by Provider: May 03, 2017 Time Seen by Provider: 07:11 Date H&P Reviewed: May 03, 2017 Time H&P Reviewed: 07:11 Pre-Operative Diagnosis: right knee primary osteoarthritis CLAUDIA ANSARI MD May 03, 2017 07:27
--- NOTE | 2017-05-03 07:28 | Progress Note-Post Operative ---
Post-Operative Progess Note Surgeon (s)/Instructor Industrial Design (s) Surgeon CLAUDIA ANSARI MD Instructor Industrial Design: Bryson Brandt Pre-Operative Diagnosis right knee primary osteoarthritis Post-Operative Diagnosis right knee primary osteoarthritis Procedure & Operative Findings Date of Procedure 05/03/17 Procedure Performed/Findings right total knee arthroplasty Anesthesia Type GETA Estimated Blood Loss Estimated blood loss (mL): minimal Specimens/Packing Specimens Removed none Packing: none CLAUDIA ANSARI MD May 03, 2017 07:28
[2017-05-03] MEDS ORDERED: ROCURONIUM 10 MG/ML 5 ML SYRINGE IV ONE (07:29)
[2017-05-03] MEDS ORDERED: SEVOFLURANE (ULTANE) 15 ML INHAL SOLN ONE ×6 (07:29→08:47)
[2017-05-03] MEDS ORDERED: INTRA-ARTICULAR IU ONE ×5 (07:30)
--- NOTE | 2017-05-03 07:30 | D/C HH Face to Face Order ---
D/C Face to Face Orders Instructions for Patient Patient Instructions/FollowUp: three weeks Physician to follow Patient: three weeks Discharge Diet for Home: Regular Diet Patient Data-Allergies,Ht & Wt Patient Allergies: Coded Allergies: dipyridamole (Unverified Allergy, Unknown, PT HAD REACTION TO PERSANTINE DURING TEST, 08/15/06) Height (Feet): 5 Height (Inches): 7.00 Weight (Pounds): 271 Weight (Ounces): 0.0 Home Health Need/Face to Face Date of Face to Face: May 03, 2017 Clinical Findings: Instability, Muscle weakness, Non or partial weight bearing , Pain with ambulation, Unsteady gait I have seen Pt [id number]: Yes Discharged To: Home Diagnosis/Conditions: right total knee arthroplsty Problems/Diagnosis/Condition: Patient is Homebound due to: Madhav fall risk due to instabilty, Muscle weakness , Pain w/ambulation Homebound Status Due to the above stated illness, injury or surgical procedure (medical condition or diagnosis) and associated clinical findings, the patient is homebound because of his/her inability to leave home except with aid of a supportive device and/or person AND leaving the home requires a considerable and taxing effort or is medically contraindicated. Pt req the following assistanc: Walker Home Health Nursing Orders Home Health Services Order: Physical Therapy-Evaluate & Treat Therapy Orders Therapy Orders: PT to assess for OT Therapy Specific Orders: Eval assistive deivces, Teach enviro modifications/ safety, Gait training, Increase strength/endurance, Restore ROM Certify Stmt I certify that this patient is under my care and that I, a nurse practitioner or a physician; a design assistant working with me, had a face to face encounter that - meets the physician face to face encounter requirements with this patient as dated. CLAUDIA ANSARI MD May 03, 2017 07:30
[2017-05-03] MEDS ORDERED: OXYC-197 PO (07:31)
[2017-05-03] MEDS: LACTATED RINGERS 1,000 ML IV PRN ×2 (07:47→08:46)
[2017-05-03 08:29] VITALS: BP 145/84
[2017-05-03] MEDS ORDERED: LACTATED RINGERS 1,000 ML IV ONE (08:42)
[2017-05-03] MEDS ORDERED: PHENYLEPHRINE 100 MCG/ML 10 ML (ANESTHESIA) SYR ONE (08:43)
[2017-05-03] MEDS ORDERED: morphine INJ 10 MG/ML 1ML (SYR OR VIAL) ONE (08:59)
[2017-05-03] MEDS ORDERED: HYDROmorphone (DILAUDID) 2 MG/ML VIAL ONE (08:59)
[2017-05-03] MEDS ORDERED: diphenhydrAMINE 50 MG/ML INJ (BENADRYL) IVP PRN (09:15)
[2017-05-03] MEDS ORDERED: ONDANSETRON 4 MG/2 ML (SDV) Z0FRAN IVP PRN ×2 (09:15→09:30)
[2017-05-03] MEDS ORDERED: morphine PCA 30 MG/30 ML VIAL IV PRN (09:15)
[2017-05-03] MEDS ORDERED: ACETAMINOPHEN 325 MG TABLET/CAPLET (TYLENOL) PO PRN (09:15)
[2017-05-03] MEDS ORDERED: HYDROmorphone (DILAUDID) 2 MG/ML VIAL IVP PRN (09:30)
[2017-05-03] MEDS ORDERED: MEPERIDINE (DEMEROL) INJ 50 MG/ML IVP PRN (09:30)
[2017-05-03] MEDS: morphine INJ 10 MG/ML 1ML (SYR OR VIAL) IVP PRN ×2 (09:37→09:42)
--- NOTE | 2017-05-03 09:53 | Diagnostic Imaging Report ---
INDICATION: Postop right knee replacement. TECHNIQUE: 2 views of the right knee. COMPARISON: None FINDINGS: There is a right total knee arthroplasty. No immediate hardware complication is seen. There is soft tissue and intra-articular air, as well as soft tissue edema and mild intra-articular fluid, consistent with recent surgery. Skin skip are noted anteriorly. Alignment appears normal. A small ossific fragment is seen posterior laterally. IMPRESSION: 1. Expected postsurgical changes following right total knee arthroplasty. Dictated by: Dictated on workstation # [id number]
[2017-05-03 10:20] VITALS: BP 145/67
[2017-05-03] MEDS: NS IV 1000 ML 1,000 ML IV SCH ×3 (10:41→23:33)
--- NOTE | 2017-05-03 11:28 | Physical Therapy Evaluation ---
PT Evaluation-General Medical Diagnosis Admission Date May 03, 2017 at 06:00 Medical Diagnosis: OA Onset Date: May 03, 2017 Therapy Diagnosis Therapy Diagnosis: generalized weakness/debility Height/Weight Height (Feet): 5 Height (Inches): 7.00 Weight (Pounds): 271 Weight (Ounces): 0.0 Precautions Precautions/Isolations: Standard Precautions Weight Bear Status Right Lower Extremity: Right Weight Bearing/Tolerated Left Lower Extremity: Left Full Weight Bearing Referral Physician: Luc Reason for Referral: Evaluation/Treatment Medical History Pertinent Medical History: COPD, HTN, OA Additional Medical History heart disease/pacemaker Current History s/p elective right TKR Reviewed History: Yes Social History Home: Single Level Current Living Status: Spouse Prior/Core FIM Prior Level of Function Functional [place] Measure 0=Not Assessed/NA 4=Minimal Assistance 1=Total Assistance 5=Supervision or Setup 2=Maximal Assistance 6=Modified [place] 3=Moderate Assistance 7=Complete [place] Bed Mobility: 7 Transfers (B,C,W/C) (FIM): 7 Gait: 7 Locomotion: 7 PT Evaluation-Current Subjective Patient and family agree to PT. Pain Numeric Pain Scale: 5-Moderate Pain Location: Right Location Body Site: Knee Pain Description: Acute Objective Patient Orientation: Normal For Age Problem Solving: Good Attachments: IV ROM/Strength ROM Lower Extremities CPM right knee 0-45 degrees with polar pack in place left LE WFL Strength Lower Extremities right LE NT left knee flexion/extension 4/5; DF/PF 4/5 Integumentary/Posture Integumentary refer to nursing notes Bowel Incontinence: No Bladder Incontinence: No Posture WNL Neuromuscular (Tone, Coordination, Reflexes) grossly intact Sensory Vision: Functional Hearing: Impaired Sensation Right Lower Extremit: Intact Sensation Left Lower Extremity: Intact Transfers Functional [place] Measure 0=Not Assessed/NA 4=Minimal Assistance 1=Total Assistance 5=Supervision or Setup 2=Maximal Assistance 6=Modified [place] 3=Moderate Assistance 7=Complete [place] Transfers (B, C, W/C) (FIM): 4 Scootin Rollin will assess sit to campus administrator p.m. Gait Mode of Locomotion: Walk Anticipated Mode of Locomotion: Walk Assessment/Needs Patient is currently too sedated to perform OOB activities, however, will be seen in p.m. 76 y.o. male, will benefit from skilled PT to address functional strength and mobility to improve current LOF and to safely return to home with spouse at maximum LOF. Rehab Potential: Good PT Fdc Goals Rear Admiral Goals PT Rear Admiral Goals Time Frame: May 10, 2017 Transfers (B,C,W/C) (FIM): 6 Gait (FIM): 6 Gait distance (FIM): 3=150 ft Distance: 200' Gait Level of Assist: 6 Gait Assistive Device: FWW Stairs (FIM): 5 # of Steps: 4 Stairs Level Of Assist: 5 PT Plan Problem List Problem List: Activity Tolerance, Functional Strength, Safety, Balance, Gait, Transfer, Bed Mobility, ROM Treatment/Plan Treatment Plan: Continue Plan of Care Treatment Plan: Bed Mobility, Education, Functional Activity Tye, Functional Strength, Gait, Safety, Therapeutic Exercise, Transfers Treatment Duration: May 10, 2017 Frequency: 11 times per week Estimated Hrs Per Day: 1 hour per day Patient and/or Family Agrees t: Yes Discharge Recommendations Therapy D/C Recommendations: Home w/ Family Support, Physical Therapy Home Care Time/GCodes Time In: 1050 Time Out: 1105 Total Billed Treatment Time: 15 Total Billed Treatment 1 visit EVModC 15 min CPM PADS KANDI MORSE PT May 03, 2017 11:28
[2017-05-03] MEDS ORDERED: PATIENT MAY USE OWN MEDS, ALL MC SCH (11:30)
--- NOTE | 2017-05-03 11:48 | Progress Note-Standard ---
Standard Progress Note Progress Notes/Assess & Plan Date Seen by Provider: May 03, 2017 Time Seen by Provider: 11:45 Progress/Assessment & Plan post op check no complaints denies paresthesia radiographs- hw well positioned. no fractures rle--2 plus dp pulse with brisk cap refill. sensation intact throughout. Intact df and pf of toes and ankle s/p RTKA doing well mobilize as able CLAUDIA ANSARI MD May 03, 2017 11:48
[2017-05-03 12:00] VITALS: BP 117/74
[2017-05-03] MEDS: oxyCODONE/APAP 5/325MG (PERCOCET 5) TABLET PO PRN ×4 (13:56→23:34)
--- NOTE | 2017-05-03 14:06 | OPERATIVE REPORT ---
DATE OF SERVICE: 05/03/2017 PREOPERATIVE DIAGNOSIS: Right knee primary osteoarthritis. POSTOPERATIVE DIAGNOSIS: Right knee primary osteoarthritis. PROCEDURE: Right total knee arthroplasty. SURGEON: Tam Calle MD. RIG WELDER: DAYO Faye, who assisted throughout the procedure and closed the incision. ANESTHESIA: General endotracheal by Quintin Cole CRNA. TOURNIQUET TIME: Approximately 65 minutes at 300 mmHg. ESTIMATED BLOOD LOSS: Minimal. DRAINS: None. COMPLICATIONS: None. POSTOPERATIVE PLAN: Routine protocol. MATERIALS: MicroPort cemented size 5 femur, cemented size 5 tibia with a 12 mm insert and a cemented size 35 patella. STATEMENT OF MEDICAL NECESSITY: The patient is a 76-year-old gentleman with longstanding progressive right knee pain. He has undergone treatment with arthroscopy, injections, activity modifications and anti-inflammatories without relief. Radiographs revealed severe medial and patellofemoral arthrosis and due to functional impairment, failure to improve with conservative measures, the patient elected to proceed with surgical intervention. DESCRIPTION OF PROCEDURE: After risks and benefits of procedure were discussed and questions were answered, informed consent was signed and placed on chart. The operative site was confirmed in the preoperative holding area initialed by surgeon. The patient was then transferred to the operating room. After adequate levels of general endotracheal anesthetic were obtained, timeout was called confirming the operative site. The right lower extremity was prepped and draped in the usual sterile fashion. With the leg elevated and the knee flexed, the tourniquet inflated to 300 mmHg. A standard anterior approach was utilized. Hemostasis was obtained with cautery and a medial parapatellar arthrotomy was performed leaving 1 cm cuff on the patella for later reattachment. A portion of the fat pad was resected and a subperiosteal release was performed on the proximal medial tibia with curved osteotome. The ACL was resected. The intramedullary guide was passed into the femoral canal and the distal cutting block was placed. The distal cut was made and the femur sized to a size 5. A 5 cutting block was placed parallel to the epicondylar axis and the cuts were made from posterior to anterior. A subperiosteal release was then carefully performed on the posterior distal femur being careful to stay on the bony surface with a curved osteotome. The intramedullary guide was then passed into the tibia. The cutting block was placed. The drop suki transected the intermalleolar axis and the cut was made. The baseplate was placed and the drop suki again transected the intermalleolar axis. This was then prepared with a drill and keel punch. The tibial and femoral trials were placed with a 12 mm insert. The trochlear cut was made. The patella was then prepared using the freehand technique by resecting 10 mm off the undersurface. The peg guide was placed and the peg holes were drilled. The 35 trial was placed. The knee was then taken through range of motion. Full extension was easily obtained, 120 degrees of flexion with gravity was easily obtained. There was no anterior/posterior or medial/lateral laxity in flexion or extension. The trials were removed. The joint was irrigated with pulse lavage. The periarticular block was placed in the posterior capsule, medial and lateral retinaculum extensor mechanism and subcutaneous tissues. The bone ends were irrigated and dried. The tibial baseplate was cemented in position. Excess of cement was removed. The superior surface was irrigated and dried and the polyethylene insert was placed. Distal femur was irrigated and dried and the femoral prosthesis was cemented into position. Excess of cement was removed. The undersurface of the toe was irrigated and dried and the patellar button was cemented into position. Excess of cement was removed. The knee was brought out into full extension until the cement had cured. Once the cement had cured, the knee was taken through range of motion. Full extension was easily obtained and 120 degrees of flexion with gravity was easily obtained. The patella tracked well. No anterior/posterior or medial/lateral laxity in flexion or extension. The joint was further irrigated with the pulse lavage. Arthrotomy was closed with #2 Tevdek in [id number] interrupted fashion. Knee was then flexed. No undue tension is noted at the repair site. Subcutaneous tissues were irrigated using a total of 6 liters of pulse lavage throughout the procedure. A 0 Vicryl was used for deep subcutaneous tissue, 2-0 Vicryl for the superficial subcutaneous tissue, skip used on the skin. A soft dressing was applied and the tourniquet was deflated. The patient was transferred to the recovery room awake and in stable condition. Job ID: [id number] DocumentID: [id number] Dictated Date: 05/03/2017 09:16:20 Information Technology Advisor Date: 05/03/2017 14:05:34 Dictated By: TAM CALLE MD
--- NOTE | 2017-05-03 14:36 | Anesthesia-General Post-Op ---
General Patient Condition Mental Status/LOC: Same as Preop Cardiovascular: Satisfactory Nausea/Vomiting: Absent Respiratory: Satisfactory Pain: Controlled Complications: Absent Post Op Complications Complications None Follow Up Care/Instructions Patient Instructions None needed. Anesthesia/Patient Condition Patient Condition Patient is doing well, no complaints, stable vital signs, no apparent adverse anesthesia problems. No complications reported per nursing. RICHARD CARDENAS CRNA May 03, 2017 14:36
--- NOTE | 2017-05-03 14:50 | Physical Therapy Daily Note ---
PT Daily Note-Current Subjective Patient in bed pre tx, agrees to PT, has no complaints of pain at rest. Appearance Patient BTB post tx with nurse call, phone, anz, [facility] care on. Patient only has one foot SCD, nurse notified so he can get another. Mental Status Patient Orientation: Person, Place, Situation Attachments: IV Transfers Functional [place] Measure 0=Not Assessed/NA 4=Minimal Assistance 1=Total Assistance 5=Supervision or Setup 2=Maximal Assistance 6=Modified [place] 3=Moderate Assistance 7=Complete IndependenceIRFPAI Quality Coding Scale 6 Independent with activity with or without an assistive device 5 Patient requires set up or clean up by helper. Patient completes activity by themselves 4 Supervision or touching assist (CGA). [place] provide cues , steadying assist 3 The helper provides less than half the effort to complete the activity 2 The helper provides more than half the effort to complete the activity 1 Dependent. The helper does all the effort to complete an activity 7 Patient refused to complete or attempt activity 9 The patient did not perform the activity before the current illness or injury 88 Not attempted due to Medical conditions or safety concerns Transfers (B, C, W/C) (FIM): 4 Scootin Rollin Supine to/from Sit: 5 Sit to/from Stand: 4 Bed to/from Chair: 4 Bed mobility SBA, transfers CGA. Cues for hand placement and positioning. Patient was slightly dizzy upon sitting and standing but it resolved quickly. Weight Bearing Right Lower Extremity: Right Weight Bearing/Tolerated Left Lower Extremity: Left Full Weight Bearing Gait Training Gait (FIM): 2 Distance: 80' Gait Level of Assist: 4 Gait Persons Needed: 1 Gait Assistive Device: FWW Slow, antalgic ambulation, slightly bent right knee. Good step through and foot clearance. Exercises Supine Ex: Ankle pumps, Quad Set, Heel Slides, Short Arc Quads, Straight leg raise Supine Reps: 10 Treatments bed mobility and transfers, ambulation, functional strengthening and ROM Assessment Current Status: Fair Progress Patient had the following AAROM of the right knee: flexion 95 degrees, extension +2 degrees PT Restuarant Crew Worker Goals [facility] Goals PT [facility] Goals Time Frame: May 10, 2017 Transfers (B,C,W/C) (FIM): 6 Gait (FIM): 6 Gait distance (FIM): 3=150 ft Distance: 200' Gait Level of Assist: 6 Gait Assistive Device: FWW Stairs (FIM): 5 # of Steps: 4 Stairs Level Of Assist: 5 PT Plan Problem List Problem List: Activity Tolerance, Functional Strength, Safety, Balance, Gait, Transfer, Bed Mobility, ROM Treatment/Plan Treatment Plan: Continue Plan of Care Treatment Plan: Bed Mobility, Education, Functional Activity Tye, Functional Strength, Gait, Safety, Therapeutic Exercise, Transfers Treatment Duration: May 10, 2017 Frequency: 11 times per week Estimated Hrs Per Day: 1 hour per day Patient and/or Family Agrees t: Yes Safety Risks/Education Patient Education: Gait Training, Transfer Techniques, Correct Positioning, Safety Issues Teaching Recipient: Patient Teaching Methods: Demonstration, Discussion Response to Teaching: Reinforcement Needed Time/GCodes Time In: 1405 Time Out: 1430 Total Billed Treatment Time: 25 Total Billed Treatment 1 visit GT 15' EX 10' ENRIKE CARRERO PT May 03, 2017 14:50
[2017-05-03 16:00] VITALS: BP 124/67
[2017-05-03] MEDS: CEFUROXIME INJECTION 750 MG in NS (IVPB) 100 ML IV SCH (17:03)
[2017-05-03] MEDS: APIXABAN 5 MG (ELIQUIS) TABLET PO SCH (18:17)
[2017-05-03] MEDS: VERAPAMIL 120 MG TABLET PO SCH (18:18)
[2017-05-03 20:00] VITALS: BP 136/75
[2017-05-03] MEDS: DOCUSATE SODIUM 100 MG (COLACE) CAP PO SCH (20:04)
[2017-05-03] MEDS: SENNA W/DOCUSATE (SENOKOT S) TABLET PO SCH (20:05)
[2017-05-03] MEDS ORDERED: NON-FORMULARY MEDICATION 1 EA EA (Docusate Sodium 100 MG) PO SCH (21:00)
[2017-05-04 00:42] VITALS: BP 132/68
[2017-05-04] MEDS: CEFUROXIME INJECTION 750 MG in NS (IVPB) 100 ML IV SCH (00:48)
[2017-05-04 03:57] VITALS: BP 128/66
[2017-05-04] MEDS: LORATADINE (CLARITIN) 10 MG TAB PO SCH (05:59)
[2017-05-04] MEDS: VERAPAMIL 120 MG TABLET PO SCH ×2 (05:59→19:04)
[2017-05-04] MEDS: lisINopril 10 MG (PRINIVIL) TABLET PO SCH (06:00)
[2017-05-04] MEDS: FUROSEMIDE 20 MG (LASIX) TAB PO SCH (06:00)
[2017-05-04] MEDS: APIXABAN 5 MG (ELIQUIS) TABLET PO SCH ×2 (06:01→19:04)
[2017-05-04] MEDS: ZINC AMINO ACID CHELATE PO SCH (06:01)
[2017-05-04] MEDS: NON-FORMULARY MEDICATION 1 EA EA (Ubidecarenone (Co Q10) 200 MG) PO SCH (06:01)
[2017-05-04] MEDS: MULTIVIT W/MINERALS TAB (THERAGRAN M) PO SCH (06:02)
[2017-05-04 06:48] LABS: HEMOGLOBIN 11.4 G/DL (13.3-17.7)
--- NOTE | 2017-05-04 07:47 | Progress Note-Standard ---
Standard Progress Note Progress Notes/Assess & Plan Date Seen by Provider: May 04, 2017 Time Seen by Provider: 07:46 Progress/Assessment & Plan post op check no complaints denies paresthesia radiographs- hw well positioned. no fractures rle--2 plus dp pulse with brisk cap refill. sensation intact throughout. Intact df and pf of toes and ankle s/p RTKA doing well mobilize as able Final Diagnosis Patient ambulating in patel Vital Signs Date Time Temp Pulse Resp B/P (MAP) Pulse Ox O2 Delivery O2 Flow Rate FiO2 05/04/17 05:57 17 05/04/17 03:57 97.6 67 17 128/66 (86) 95 Room Air 05/04/17 00:42 97.9 70 18 132/68 (89) 95 Room Air 05/03/17 20:00 98.8 69 18 136/75 (95) 95 Room Air 05/03/17 16:00 98.7 67 18 124/67 (86) 95 Room Air 05/03/17 12:00 97.6 68 20 117/74 (88) 94 Room Air 05/03/17 10:30 94 Room Air 2.00 05/03/17 10:20 97.4 73 18 145/67 (93) 95 Nasal Cannula 2.00 05/03/17 08:29 97.8 74 18 145/84 (104) 94 Room Air I & O 05/04/17 07:00 Intake Total 2750 ml Output Total 1900 ml Balance 850 ml Laboratory Tests Test 05/04/17 06:19 Range/Units Hemoglobin 11.4 L 13.3-17.7 G/DL Hematocrit 34 L 40-54 % RLE--NVI distally. no calf tenderness. Dressing intact s/p RTKA doing well continue PT/OT CLAUDIA ANSARI MD May 04, 2017 07:47
[2017-05-04 08:00] VITALS: BP 117/61
[2017-05-04] MEDS: SENNA W/DOCUSATE (SENOKOT S) TABLET PO SCH ×2 (08:14→19:11)
[2017-05-04] MEDS: oxyCODONE/APAP 5/325MG (PERCOCET 5) TABLET PO PRN ×5 (08:33→21:46)
--- NOTE | 2017-05-04 09:31 | Physical Therapy Daily Note ---
PT Daily Note-Current Subjective Patient rates right knee pain 4/10 with meds issued. Pain Numeric Pain Scale: 4 Location: Right Location Body Site: Knee Pain Description: Acute Mental Status Patient Orientation: Normal For Age Attachments: Polar Pack, IV Transfers Functional [place] Measure 0=Not Assessed/NA 4=Minimal Assistance 1=Total Assistance 5=Supervision or Setup 2=Maximal Assistance 6=Modified [place] 3=Moderate Assistance 7=Complete IndependenceIRFPAI Quality Coding Scale 6 Independent with activity with or without an assistive device 5 Patient requires set up or clean up by helper. Patient completes activity by themselves 4 Supervision or touching assist (CGA). [place] provide cues , steadying assist 3 The helper provides less than half the effort to complete the activity 2 The helper provides more than half the effort to complete the activity 1 Dependent. The helper does all the effort to complete an activity 7 Patient refused to complete or attempt activity 9 The patient did not perform the activity before the current illness or injury 88 Not attempted due to Medical conditions or safety concerns Transfers (B, C, W/C) (FIM): 6 Scootin Rollin Supine to/from Sit: 6 Sit to/from Stand: 6 Weight Bearing Right Lower Extremity: Right Weight Bearing/Tolerated Left Lower Extremity: Left Full Weight Bearing Gait Training Gait (FIM): 6 Distance (FIM): 3=150 ft Distance: 300' Gait Level of Assist: 6 Gait Assistive Device: FWW steady, reciprocal pattern Exercises Supine Ex: Ankle pumps, Quad Set, Heel Slides, Straight leg raise Supine Reps: 25 Seated Therapy Exercises: Ankle pumps, Long arc quads Seated Reps: 25 Assessment Patient progressing with treatment plan. PT will increase activity as tolerated. CPM 0-60 degrees with polar pack in place. PT Coupon Redemption Clerk Goals Coupon Redemption Clerk Goals PT [facility] Goals Time Frame: May 10, 2017 Transfers (B,C,W/C) (FIM): 6 Gait (FIM): 6 Gait distance (FIM): 3=150 ft Distance: 200' Gait Level of Assist: 6 Gait Assistive Device: FWW Stairs (FIM): 5 # of Steps: 4 Stairs Level Of Assist: 5 PT Plan Treatment/Plan Treatment Plan: Continue Plan of Care Treatment Plan: Bed Mobility, Education, Functional Activity Tye, Functional Strength, Gait, Safety, Therapeutic Exercise, Transfers Treatment Duration: May 10, 2017 Frequency: 11 times per week Estimated Hrs Per Day: 1 hour per day Patient and/or Family Agrees t: Yes Time/GCodes Time In: 820 Time Out: 844 Total Billed Treatment Time: 24 Total Billed Treatment 1 visit GT 14 min EX 10 min KANDI MORSE PT May 04, 2017 09:31
[2017-05-04 12:00] VITALS: BP 106/53
[2017-05-04] MEDS: NS IV 1000 ML 1,000 ML IV SCH (12:24)
--- NOTE | 2017-05-04 15:37 | Physical Therapy Daily Note ---
PT Daily Note-Current Subjective Patient agrees to PT. No c/o. Pain Numeric Pain Scale: 5-Moderate Pain Location: Right Location Body Site: Knee Pain Description: Acute Mental Status Patient Orientation: Normal For Age Attachments: IV Transfers Functional [place] Measure 0=Not Assessed/NA 4=Minimal Assistance 1=Total Assistance 5=Supervision or Setup 2=Maximal Assistance 6=Modified [place] 3=Moderate Assistance 7=Complete IndependenceIRFPAI Quality Coding Scale 6 Independent with activity with or without an assistive device 5 Patient requires set up or clean up by helper. Patient completes activity by themselves 4 Supervision or touching assist (CGA). [place] provide cues , steadying assist 3 The helper provides less than half the effort to complete the activity 2 The helper provides more than half the effort to complete the activity 1 Dependent. The helper does all the effort to complete an activity 7 Patient refused to complete or attempt activity 9 The patient did not perform the activity before the current illness or injury 88 Not attempted due to Medical conditions or safety concerns Transfers (B, C, W/C) (FIM): 5 Scootin Sit to/from Stand: 5 Weight Bearing Right Lower Extremity: Right Weight Bearing/Tolerated Left Lower Extremity: Left Full Weight Bearing Gait Training Gait (FIM): 6 Distance (FIM): 3=150 ft Distance: 350' Gait Level of Assist: 6 Gait Assistive Device: FWW reciprocal pattern Exercises Supine Ex: Ankle pumps, Quad Set, Heel Slides Supine Reps: 25 Seated Therapy Exercises: Ankle pumps, Long arc quads Seated Reps: 25 Assessment Patient tolerated treatment well and is up in recliner with needs met. Patient is progressing with treatment plan. PT Forest Fire Warden Goals Forest Fire Warden Goals PT Forest Fire Warden Goals Time Frame: May 10, 2017 Transfers (B,C,W/C) (FIM): 6 Gait (FIM): 6 Gait distance (FIM): 3=150 ft Distance: 200' Gait Level of Assist: 6 Gait Assistive Device: FWW Stairs (FIM): 5 # of Steps: 4 Stairs Level Of Assist: 5 PT Plan Treatment/Plan Treatment Plan: Continue Plan of Care Treatment Plan: Bed Mobility, Education, Functional Activity Tye, Functional Strength, Gait, Safety, Therapeutic Exercise, Transfers Treatment Duration: May 10, 2017 Frequency: 11 times per week Estimated Hrs Per Day: 1 hour per day Patient and/or Family Agrees t: Yes Time/GCodes Time In: 1315 Time Out: 1340 Total Billed Treatment Time: 25 Total Billed Treatment 1 visit EX 15 min GT 10 min KANDI MORSE PT May 04, 2017 15:37
[2017-05-04 16:32] VITALS: BP 118/60
--- NOTE | 2017-05-04 16:59 | Occupational Therapy Eval ---
OT Evaluation-General/PLF Medical Diagnosis Admission Date May 03, 2017 at 06:00 Medical Diagnosis: OA Onset Date: May 03, 2017 Therapy Diagnosis Therapy Diagnosis: decr self care, decr funct mobilitty Height/Weight Height (Feet): 5 Height (Inches): 7.00 Weight (Pounds): 271 Weight (Ounces): 0.0 Precautions Precautions/Isolations: Standard Precautions Safety Interventions: None Weight Bear Status Weight Bearing Restriction: Weight Bearing/Tolerated Referral Physician: Luc Referral Reason: Evaluation/Treatment Medical History Pertinent Medical History: COPD, HTN, OA Additional Medical History Heart disease. pacemaker. Foot surgery Current History Elective total knee R Reviewed History: Yes Social History Home: Single Level Current Living Status: Spouse ADL-Prior Level of Function ADL PLOF Comments Pt reported that he was able to manage his basic ADLs at home. He wore slip on shoes and would have difficulty tying them due to his body habitus. DME/Equipment: Grab Bars, Shower, Tall Toilet Occupation: retired OT Current Status Subjective Pt seen inroom, up in bed, agreeable to OT. Pain rated 9/10 and he used METAL MILLING MACHINE OPERATOR pump for meds. pt encouraged to ask for oral meds to give them time to work Appearance Alert, cooperative Mental Status/Objective Attachments: Central Line, IV, SCD's Current Glasses/Contacts: Yes Hand Dominance: Right Upper Extremity ROM Grossly WFL bilat Upper Extremity Strength Grossly WFL bilat ADL-Treatment ADL-Current Pt has been walking over 300 feet with mod I, FWW with PT. pt inquired about taking a shower tomorrow and reported that he hasn't been to toilet for BM. Functional [place] Measure 0=Not Assessed/NA 4=Minimal Assistance 1=Total Assistance 5=Supervision or Setup 2=Maximal Assistance 6=Modified [place] 3=Moderate Assistance 7=Complete IndependenceIRFPAI Quality Coding Scale 6 Independent with activity with or without an assistive device 5 Patient requires set up or clean up by helper. Patient completes activity by themselves 4 Supervision or touching assist (CGA). [place] provide cues , steadying assist 3 The helper provides less than half the effort to complete the activity 2 The helper provides more than half the effort to complete the activity 1 Dependent. The helper does all the effort to complete an activity 7 Patient refused to complete or attempt activity 9 The patient did not perform the activity before the current illness or injury 88 Not attempted due to Medical conditions or safety concerns Education OT Patient Education: Modified ADL techniques, Purpose of tx/functional activities, Rehab process Teaching Recipient: Patient, Family Teaching Methods: Discussion Response to Teaching: Verbalize Understanding OT Nail Making Machine Setter Goals Nail Making Machine Setter Goals Time Frame: May 06, 2017 Bathing(FIM): 5 Upper Body Dressing(FIM): 5 Lower Body Dressing(FIM): 5 Toileting(FIM): 6 Toilet/Commode Transfer(FIM): 6 Additional Goals: 1-Demonstrate ADL Tasks, 2-Verbalize Understanding, 3- ImproveStrength/Tye 1=Demonstrate adherence to instructed precautions during ADL tasks. 2=Patient will verbalize/demonstrate understanding of assistive devices/ modifications for ADL. 3=Patient will improve strength/tolerance for activity to enable patient to perform ADL's. OT Education/Plan Problem List/Assessment Assessment: Dependent Transfers, Impaired Self-Care Skills Pt would benefit from skilled ot to increase his independence in basic self care and to decrease caregiver burden Discharge Recommendations Plan/Recommendations: Continue POC Target Placement Home on Monday Treatment Plan/Plan of Care Treatment,Training & Education: Yes Patient would benefit from OT for education, treatment and training to promote independence in ADL's, mobility, safety and/or upper extremity function for ADL' s. Plan of Care: ADL Retraining Treatment Duration: May 06, 2017 Frequency: 5 times per week Estimated Hrs Per Day: .25 hour per day (.25 to .5) Rehab Potential: Good Time/GCodes Start Time: 15:05 Stop Time: 15:20 Total Time Billed (hr/min): 15 Billed Treatment Time visit, 15 minutes evaluation low intensity JUAN JOEL OT May 04, 2017 16:59
[2017-05-04] MEDS: DOCUSATE SODIUM 100 MG (COLACE) CAP PO SCH (19:07)
[2017-05-04 20:21] VITALS: BP 116/60
[2017-05-05] VITALS: BP 123/65
[2017-05-05] MEDS: oxyCODONE/APAP 5/325MG (PERCOCET 5) TABLET PO PRN ×8 (00:07→20:50)
[2017-05-05] MEDS: NS IV 1000 ML 1,000 ML IV SCH (01:11)
[2017-05-05 04:00] VITALS: BP 117/64
--- NOTE | 2017-05-05 07:06 | Progress Note-Standard ---
Standard Progress Note Progress Notes/Assess & Plan Date Seen by Provider: May 05, 2017 Time Seen by Provider: 07:05 Progress/Assessment & Plan post op check no complaints denies paresthesia radiographs- hw well positioned. no fractures rle--2 plus dp pulse with brisk cap refill. sensation intact throughout. Intact df and pf of toes and ankle s/p RTKA doing well mobilize as able Final Diagnosis No complaints Vital Signs Date Time Temp Pulse Resp B/P (MAP) Pulse Ox O2 Delivery O2 Flow Rate FiO2 05/05/17 04:00 99.7 84 18 117/64 (81) 95 NIV CPAP 05/05/17 00:00 99.3 77 17 123/65 (84) 94 NIV CPAP 05/04/17 20:21 100.6 83 18 116/60 (78) 93 Room Air 05/04/17 20:20 Room Air 05/04/17 16:32 100.3 76 18 118/60 (79) 93 Room Air 05/04/17 12:00 98.9 76 20 106/53 (70) 94 Room Air 05/04/17 08:00 99.5 88 20 117/61 (79) 93 Room Air 05/04/17 08:00 96 Room Air I & O 05/05/17 07:00 Intake Total 1720 ml Output Total 1500 ml Balance 220 ml Laboratory Tests Test 05/05/17 06:05 Range/Units Hemoglobin 11.0 L 13.3-17.7 G/DL Hematocrit 33 L 40-54 % RLE--able to perform SLR. neg Shant';s. incision clean and dry s/p RTKA doing well continue PT/OT likely DC tomorrow CLAUDIA ANSARI MD May 05, 2017 07:06
[2017-05-05] MEDS: FUROSEMIDE 20 MG (LASIX) TAB PO SCH (07:07)
[2017-05-05] MEDS: VERAPAMIL 120 MG TABLET PO SCH ×2 (07:08→18:37)
[2017-05-05] MEDS: APIXABAN 5 MG (ELIQUIS) TABLET PO SCH ×2 (07:08→18:37)
[2017-05-05] MEDS: lisINopril 10 MG (PRINIVIL) TABLET PO SCH (07:09)
[2017-05-05] MEDS: LORATADINE (CLARITIN) 10 MG TAB PO SCH (07:10)
[2017-05-05] MEDS ORDERED: morphine INJ 4 MG/ML 1 ML (VIAL/SYRINGE) IVP PRN (07:15)
[2017-05-05 08:00] VITALS: BP 122/68
[2017-05-05] MEDS: SENNA W/DOCUSATE (SENOKOT S) TABLET PO SCH ×2 (08:06→19:45)
[2017-05-05] MEDS: MULTIVIT W/MINERALS TAB (THERAGRAN M) PO SCH (08:06)
--- NOTE | 2017-05-05 09:40 | Physical Therapy Daily Note ---
PT Daily Note-Current Subjective Patient has increase c/o right knee pain with meds issued. Pain Numeric Pain Scale: 10-Worst Possible Pain Location: Right Location Body Site: Knee Pain Description: Acute Mental Status Patient Orientation: Normal For Age Transfers Functional [place] Measure 0=Not Assessed/NA 4=Minimal Assistance 1=Total Assistance 5=Supervision or Setup 2=Maximal Assistance 6=Modified [place] 3=Moderate Assistance 7=Complete IndependenceIRFPAI Quality Coding Scale 6 Independent with activity with or without an assistive device 5 Patient requires set up or clean up by helper. Patient completes activity by themselves 4 Supervision or touching assist (CGA). [place] provide cues , steadying assist 3 The helper provides less than half the effort to complete the activity 2 The helper provides more than half the effort to complete the activity 1 Dependent. The helper does all the effort to complete an activity 7 Patient refused to complete or attempt activity 9 The patient did not perform the activity before the current illness or injury 88 Not attempted due to Medical conditions or safety concerns Transfers (B, C, W/C) (FIM): 6 Scootin Rollin Supine to/from Sit: 6 Sit to/from Stand: 6 Weight Bearing Right Lower Extremity: Right Weight Bearing/Tolerated Left Lower Extremity: Left Full Weight Bearing Gait Training Gait (FIM): 6 Distance (FIM): 3=150 ft Distance: 300' x 2 Gait Level of Assist: 6 Gait Assistive Device: FWW antalgic, reciprocal pattern Stair Training Stair Training: Handrails/: No handrail Stairs (FIM): 2 #of Steps: 3 Stairs: Pattern: Step to Level of Assist: 4 utilized crutches due to no handrail at home. Exercises Supine Ex: Ankle pumps, Quad Set, Heel Slides Supine Reps: 15 Seated Therapy Exercises: Ankle pumps, Long arc quads Seated Reps: 15 Assessment Patient progressing with treatment plan and will dismiss to home tomorrow. PT Senior Care Goals Barrel Endshaker Adjuster Goals PT Senior Care Goals Time Frame: May 10, 2017 Transfers (B,C,W/C) (FIM): 6 Gait (FIM): 6 Gait distance (FIM): 3=150 ft Distance: 200' Gait Level of Assist: 6 Gait Assistive Device: FWW Stairs (FIM): 5 # of Steps: 4 Stairs Level Of Assist: 5 PT Plan Treatment/Plan Treatment Plan: Continue Plan of Care Treatment Plan: Bed Mobility, Education, Functional Activity Tye, Functional Strength, Gait, Safety, Therapeutic Exercise, Transfers Treatment Duration: May 10, 2017 Frequency: 11 times per week Estimated Hrs Per Day: 1 hour per day Patient and/or Family Agrees t: Yes Time/GCodes Time In: 855 Time Out: 920 Total Billed Treatment Time: 25 Total Billed Treatment 1 visit FA 14 min GT 11 min KANDI MORSE PT May 05, 2017 09:40
--- NOTE | 2017-05-05 11:54 | Occupational Ther Daily Note ---
OT Current Status-Daily Note Subjective Pt alert, lying in bed. Pt agreed to therapy. C/o with movement, did not rate. Mental Status/Objective Patient Orientation: Person, Place, Time, Situation Functional Teller Measure 0=Not Assessed/NA 4=Minimal Assistance 1=Total Assistance 5=Supervision or Setup 2=Maximal Assistance 6=Modified T[place] 3=Moderate Assistance 7=Complete Teller ADL-Treatment Min A with R LE to go from sitting up in bed to sitting EOB. With bed elevated pt was able to go from sit to stand. Pt ambulated to bathroom and transferred to shower with min A using FWW, shower bench and grabbar. Pt was able to reach all areas except R foot then assist in standing to cleanse buttocks, 1x LOB. Pt then transferred from shower with min A and transferred to toilet with min A using grabbars and FWW. Pt is able to don/doff shirt by self. Pt doffs L sock by self, assist with R sock. Assist to don B shoes. Pt was able to complete hygiene by self and assist to hike pants over hips due to increased pain in knee with pressure. Pt ambulated to sink and completed grooming with SBA. Pt ambulated to bed and min A to lift R LE into bed. After therapy, pt lying in bed with call light/phone in reach. All needs met in room. Grooming (FIM): 5 Bathing (FIM): 4 Bathing Location: L Arm, R Arm, L Upper Leg, R Upper Leg, L Lower Leg ( including foot), Chest, Abdomen, Buttocks, Perineal Area Upper Body (FIM): 5 Lower Body Dressing (FIM): 2 (Pt donned L LE into shorts, assist for R LE.) Toileting (FIM): 3 Toilet/Commode Transfer (FIM): 4 Shower Transfer(FIM): 4 OT Short Term Goals Short Term Goals 1=Demonstrate adherence to instructed precautions during ADL tasks. 2=Patient will verbalize/demonstrate understanding of assistive devices/ modifications for ADL. 3=Patient will improve strength/tolerance for activity to enable patient to perform ADL's. OT Mcfp Goals Guard Sergeant Goals Time Frame: May 06, 2017 Bathing(FIM): 5 Upper Body Dressing(FIM): 5 Lower Body Dressing(FIM): 5 Toileting(FIM): 6 Toilet/Commode Transfer(FIM): 6 Additional Goals: 1-Demonstrate ADL Tasks, 2-Verbalize Understanding, 3- ImproveStrength/Tye 1=Demonstrate adherence to instructed precautions during ADL tasks. 2=Patient will verbalize/demonstrate understanding of assistive devices/ modifications for ADL. 3=Patient will improve strength/tolerance for activity to enable patient to perform ADL's. OT Education/Plan Problem List/Assessment Pt would benefit from skilled ot to increase his independence in basic self care and to decrease caregiver burden Discharge Recommendations Plan/Recommendations: Continue POC Treatment Plan/Plan of Care Patient would benefit from OT for education, treatment and training to promote independence in ADL's, mobility, safety and/or upper extremity function for ADL' s. Plan of Care: ADL Retraining Treatment Duration: May 06, 2017 Frequency: 5 times per week Estimated Hrs Per Day: .25 hour per day (.25 to .5) Rehab Potential: Good Time/GCodes Start Time: 11:15 Stop Time: 12:04 Total Time Billed (hr/min): 49 Billed Treatment Time 1 visit-ADL 3 (49 min) CANDE LUKE May 05, 2017 11:54
[2017-05-05 12:00] VITALS: BP 118/59
--- NOTE | 2017-05-05 13:53 | Physical Therapy Daily Note ---
PT Daily Note-Current Subjective Patient has 10/10 pain with meds issued. Pain Numeric Pain Scale: 10-Worst Possible Pain Location: Right Location Body Site: Knee Pain Description: Acute Mental Status Patient Orientation: Normal For Age Transfers Functional [place] Measure 0=Not Assessed/NA 4=Minimal Assistance 1=Total Assistance 5=Supervision or Setup 2=Maximal Assistance 6=Modified [place] 3=Moderate Assistance 7=Complete IndependenceIRFPAI Quality Coding Scale 6 Independent with activity with or without an assistive device 5 Patient requires set up or clean up by helper. Patient completes activity by themselves 4 Supervision or touching assist (CGA). [place] provide cues , steadying assist 3 The helper provides less than half the effort to complete the activity 2 The helper provides more than half the effort to complete the activity 1 Dependent. The helper does all the effort to complete an activity 7 Patient refused to complete or attempt activity 9 The patient did not perform the activity before the current illness or injury 88 Not attempted due to Medical conditions or safety concerns Transfers (B, C, W/C) (FIM): 5 Scootin Rollin Supine to/from Sit: 5 Sit to/from Stand: 5 Weight Bearing Right Lower Extremity: Right Weight Bearing/Tolerated Left Lower Extremity: Left Full Weight Bearing Gait Training Gait (FIM): 5 Distance (FIM): 3=150 ft Distance: 150' Gait Level of Assist: 5 Gait Assistive Device: FWW very slow, antalgic Exercises Supine Ex: Ankle pumps, Quad Set, Heel Slides Supine Reps: 15 Seated Therapy Exercises: Long arc quads Seated Reps: 15 Treatments CPM 0-76 degrees Assessment Patient tolerated treatment well and is on CPM with polar pack in place. Plan dismissal to home with family tomorrow after PT. PT Detention Goals Devulcanizer Charger Goals PT Detention Goals Time Frame: May 10, 2017 Transfers (B,C,W/C) (FIM): 6 Gait (FIM): 6 Gait distance (FIM): 3=150 ft Distance: 200' Gait Level of Assist: 6 Gait Assistive Device: FWW Stairs (FIM): 5 # of Steps: 4 Stairs Level Of Assist: 5 PT Plan Treatment/Plan Treatment Plan: Continue Plan of Care Treatment Plan: Bed Mobility, Education, Functional Activity Tye, Functional Strength, Gait, Safety, Therapeutic Exercise, Transfers Treatment Duration: May 10, 2017 Frequency: 11 times per week Estimated Hrs Per Day: 1 hour per day Patient and/or Family Agrees t: Yes Time/GCodes Time In: 1300 Time Out: 1330 Total Billed Treatment Time: 30 Total Billed Treatment 1 visit EX 15 min GT 15 min KANDI MORSE PT May 05, 2017 13:53
[2017-05-05 16:25] VITALS: BP 132/77
[2017-05-05 19:40] VITALS: BP 120/71
[2017-05-05] MEDS: DOCUSATE SODIUM 100 MG (COLACE) CAP PO SCH (19:45)
[2017-05-06] MEDS: oxyCODONE/APAP 5/325MG (PERCOCET 5) TABLET PO PRN ×5 (00:16→13:15)
[2017-05-06 00:40] VITALS: BP 103/63
[2017-05-06 05:59] LABS: HEMOGLOBIN 10.7 G/DL (13.3-17.7)
[2017-05-06] MEDS: MULTIVIT W/MINERALS TAB (THERAGRAN M) PO SCH (06:13)
[2017-05-06] MEDS: lisINopril 10 MG (PRINIVIL) TABLET PO SCH (06:16)
[2017-05-06] MEDS: FUROSEMIDE 20 MG (LASIX) TAB PO SCH (06:16)
[2017-05-06] MEDS: LORATADINE (CLARITIN) 10 MG TAB PO SCH (06:17)
[2017-05-06] MEDS: VERAPAMIL 120 MG TABLET PO SCH (06:17)
[2017-05-06] MEDS: APIXABAN 5 MG (ELIQUIS) TABLET PO SCH (06:17)
[2017-05-06] MEDS: NON-FORMULARY MEDICATION 1 EA EA (Ubidecarenone (Co Q10) 200 MG) PO SCH (06:18)
[2017-05-06] MEDS: ZINC AMINO ACID CHELATE PO SCH (06:18)
[2017-05-06 08:00] VITALS: BP 114/56
[2017-05-06] MEDS: SENNA W/DOCUSATE (SENOKOT S) TABLET PO SCH (08:50)
--- NOTE | 2017-05-06 09:53 | Progress Note-Standard ---
Standard Progress Note Progress Notes/Assess & Plan Date Seen by Provider: May 06, 2017 Time Seen by Provider: 09:52 Progress/Assessment & Plan post op check no complaints denies paresthesia radiographs- hw well positioned. no fractures rle--2 plus dp pulse with brisk cap refill. sensation intact throughout. Intact df and pf of toes and ankle s/p RTKA doing well mobilize as able Final Diagnosis No complaints Vital Signs Date Time Temp Pulse Resp B/P (MAP) Pulse Ox O2 Delivery O2 Flow Rate FiO2 05/06/17 00:40 98.6 85 20 103/63 (76) 93 Room Air 05/05/17 22:20 98.4 05/05/17 20:45 98.4 05/05/17 19:46 100.9 05/05/17 19:40 100.9 91 20 120/71 (87) 93 Room Air 05/05/17 16:25 99.8 101 20 132/77 (95) 92 Room Air 05/05/17 12:00 98.1 82 18 118/59 (78) 96 Room Air I & O 05/06/17 07:00 Intake Total 1630 ml Output Total 200 ml Balance 1430 ml Laboratory Tests Test 05/06/17 05:26 Range/Units Hemoglobin 10.7 L 13.3-17.7 G/DL Hematocrit 32 L 40-54 % RLE--pos slr. flex to 90. no calf tenderness. Neg Shant's incision clean and dry s/p RTKA doing well DC home CLAUDIA ANSARI MD May 06, 2017 09:53
--- NOTE | 2017-05-06 10:58 | Physical Therapy Daily Note ---
PT Daily Note-Current Subjective PT agreeable. Pt rates pain 2/10 in (R) knee. Pt verbalizes understanding of HEP and ascending steps. Pt reports he will go home today with home health care to follow. Transfers Functional [place] Measure 0=Not Assessed/NA 4=Minimal Assistance 1=Total Assistance 5=Supervision or Setup 2=Maximal Assistance 6=Modified [place] 3=Moderate Assistance 7=Complete IndependenceIRFPAI Quality Coding Scale 6 Independent with activity with or without an assistive device 5 Patient requires set up or clean up by helper. Patient completes activity by themselves 4 Supervision or touching assist (CGA). [place] provide cues , steadying assist 3 The helper provides less than half the effort to complete the activity 2 The helper provides more than half the effort to complete the activity 1 Dependent. The helper does all the effort to complete an activity 7 Patient refused to complete or attempt activity 9 The patient did not perform the activity before the current illness or injury 88 Not attempted due to Medical conditions or safety concerns Weight Bearing Right Lower Extremity: Right Weight Bearing/Tolerated Left Lower Extremity: Left Full Weight Bearing Exercises Supine Ex: LE Protocol Supine Reps: 15 Treatments CPM 0-76degrees. Assessment Current Status: Good Progress Pt able to perform all exercises with min A as needed. ROM approximately 5 - 76 degrees (R) knee. Pt resting in CPM with call light and cryotherapy on knee , compression pumps on LE. All needs met. PT Restaurant Bartender Goals Restaurant Bartender Goals PT Alf Goals Time Frame: May 10, 2017 Transfers (B,C,W/C) (FIM): 6 Gait (FIM): 6 Gait distance (FIM): 3=150 ft Distance: 200' Gait Level of Assist: 6 Gait Assistive Device: FWW Stairs (FIM): 5 # of Steps: 4 Stairs Level Of Assist: 5 PT Plan Treatment/Plan Treatment Plan: Continue Plan of Care Treatment Plan: Bed Mobility, Education, Functional Activity Tye, Functional Strength, Gait, Safety, Therapeutic Exercise, Transfers Treatment Duration: May 10, 2017 Frequency: 11 times per week Estimated Hrs Per Day: 1 hour per day Patient and/or Family Agrees t: Yes Time/GCodes Time In: 815 Time Out: 840 Total Billed Treatment Time: 25 Total Billed Treatment 1, ther ex 25 min ALESIA NEW CPTA May 06, 2017 10:58
--- NOTE | 2017-05-06 14:02 | DISCHARGE SUMMARY ---
DATE OF SERVICE: 05/06/2017 DIAGNOSES: 1. Right knee primary osteoarthritis. 2. Hypertension. 3. Coronary artery disease. PROCEDURES: Right total knee arthroplasty. SUMMARY: This patient is a 76-year-old gentleman, who underwent a right total knee arthroplasty on the day of admission. Postoperatively, he did very well. At the time of discharge, he attained independent status with physical therapy. His wound was clean and dry. He can perform active straight leg raise. He had no calf tenderness. Negative Homans sign. He had active flexion to 90 degrees. He was tolerating his diet well and tolerating pain with oral pain medication. CONDITION AT DISCHARGE: Good. DISCHARGE DIET: Regular. FOLLOWUP: In three weeks. Home physical therapy has been arranged. DISCHARGE MEDICATIONS: Home medications and Percocet as needed for pain. Job ID: [id number] DocumentID: [id number] Dictated Date: 05/06/2017 09:51:12 Arbor Press Operator Date: 05/06/2017 14:02:26 Dictated By: CLAUDIA ANSARI MD
[2017-05-06 14:45] VITALS: BP 114/56
== END 2017-05-06 15:00 | disposition home health service (06) | DRG 470 ==
LOC: 4TH 06:00 → SURG 06:01 → 4TH 09:23
PROVIDERS: ADMIT Orthopaedic Surgery; ATTEND Orthopaedic Surgery
PROC: 0SRC0J9 Replacement of Right Knee Joint with Synthetic Substitute, Cemented, Open Approach (ICD-10-PCS; principal; 2017-05-03 07:32)
DX: M17.11 Unilateral primary osteoarthritis, right knee (principal); I11.9 Hypertensive heart disease without heart failure; E66.01 Morbid (severe) obesity due to excess calories; Z68.41 Body mass index [BMI] 40.0-44.9, adult; I25.10 Atherosclerotic heart disease of native coronary artery without angina pectoris; J44.9 Chronic obstructive pulmonary disease, unspecified; G47.33 Obstructive sleep apnea (adult) (pediatric); K21.9 Gastro-esophageal reflux disease without esophagitis; Z95.0 Presence of cardiac pacemaker; Z87.891 Personal history of nicotine dependence
CPT/HCPCS: 36415; 73560; 85014; 85018; 86850; 86900; 86901; 94664

== ENCOUNTER 2017-06-29 11:02 | Outpatient (RCR) | payer MEDICARE, OTHER ==
[~2017-06-29 11:02] MED LIST changes: +OXYC-197 PO
== END 2017-06-29 12:08 | disposition home or self-care (01) ==
PROVIDERS: ATTEND Orthopaedic Surgery
DX: Z47.1 Aftercare following joint replacement surgery (principal); Z96.651 Presence of right artificial knee joint

== ENCOUNTER → 2017-10-03 | Outpatient (CLI) | payer MEDICARE, OTHER ==
--- NOTE | 2017-10-03 15:26 | Diagnostic Imaging Report ---
PROCEDURE: CT lumbar spine without contrast. TECHNIQUE: Multiple contiguous axial images were obtained through the lumbar spine without the use of intravenous contrast. Sagittal and coronal reformations were then performed. INDICATION: Possible mass on the left side at the lumbosacral region. Patient also complains of right lower extremity radiculopathy. FINDINGS: No discrete mass is identified. Curvature and alignment is normal. Vertebral body heights are maintained. No acute compression fracture is seen. Hemangioma involving the L4 vertebral body is again noted and similar to CT from 06/21/2016. There is multilevel degenerative disc disease with variable disc space narrowing and marginal spurring. There is multilevel facet arthropathy present. The bony spinal canal appears to be patent at all levels. There is ligamentous thickening with broad-based disc/osteophyte complex at the L4-5 level. There appears to be some mild central canal and neural foraminal narrowing present at this level. L5-S1 demonstrates a widely patent central canal. There is significant left and moderate right neural foraminal stenosis due to endplate osteophytes, similar to prior CT. No new abnormality is seen. IMPRESSION: Spondylosis and facet arthropathy, similar in appearance to the prior CT from 06/21/2016. No acute fracture seen. No discrete mass is detected. Dictated by: Dictated on workstation # [id number]
== END ==
LOC: RAD 14:04
PROVIDERS: ATTEND Orthopaedic Surgery
DX: M47.26 Other spondylosis with radiculopathy, lumbar region (principal); M46.86 Other specified inflammatory spondylopathies, lumbar region
CPT/HCPCS: 72131

== ENCOUNTER 2017-11-22 12:43 | Outpatient (RCR) | payer MEDICARE, OTHER ==
[~2017-11-22 12:43] MED LIST changes: -OXYC-197 PO; +OXYC1TAB87 PO
== END 2017-11-26 | disposition home or self-care (01) ==
PROVIDERS: ATTEND Student in an Organized Health Care Education/Training Program
DX: M47.816 Spondylosis without myelopathy or radiculopathy, lumbar region (principal); M51.36 Other intervertebral disc degeneration, lumbar region; M53.3 Sacrococcygeal disorders, not elsewhere classified

== ENCOUNTER 2018-01-03 13:24 | Outpatient (RCR) | payer MEDICARE, OTHER | END 2018-01-03 14:45 | disposition home or self-care (01) | PROVIDERS: ATTEND Student in an Organized Health Care Education/Training Program | DX: M47.816 Spondylosis without myelopathy or radiculopathy, lumbar region (principal); M51.36 Other intervertebral disc degeneration, lumbar region; M53.3 Sacrococcygeal disorders, not elsewhere classified ==

== ENCOUNTER → 2018-12-31 | Outpatient (CLI) | payer MEDICARE, OTHER ==
--- NOTE | 2018-12-31 14:17 | Diagnostic Imaging Report ---
PROCEDURE: US Bilateral lower extremity arterial. TECHNIQUE: Multiple real-time grayscale images are obtained through both lower extremity arterial systems with color Doppler imaging and color Doppler spectral analysis. INDICATION: Claudication. FINDINGS: There are essentially normal triphasic waveforms throughout the right lower extremity. There are no focally elevated velocities appreciated to suggest stenosis. There are no abnormal fluid collections or masses. There is monophasic flow in the left popliteal artery. Remainder of the left lower extremity demonstrates triphasic waveforms. There are no focally elevated velocities appreciated to suggest stenosis. There are no abnormal fluid collections or masses. IMPRESSION: No significant arteriosclerotic stenosis in either lower extremity. Dictated by: Dictated on workstation # [id number]
== END ==
LOC: RAD 12:49
PROVIDERS: ATTEND Nurse Practitioner Family
DX: I25.812 Atherosclerosis of bypass graft of coronary artery of transplanted heart without angina pectoris (principal); I73.9 Peripheral vascular disease, unspecified
CPT/HCPCS: 93925